=== PATIENT | male | born 1935 | race Caucasian/White ===

== ENCOUNTER 2016-09-28 10:24 | Outpatient (CLI) | payer MEDICARE | END 2016-09-28 10:25 | disposition home or self-care (01) | DX: Z00.00 Encounter for general adult medical examination without abnormal findings (principal); Z79.899 Other long term (current) drug therapy; I10 Essential (primary) hypertension; G47.33 Obstructive sleep apnea (adult) (pediatric); I25.10 Atherosclerotic heart disease of native coronary artery without angina pectoris; M48.00 Spinal stenosis, site unspecified; E11.9 Type 2 diabetes mellitus without complications; D75.1 Secondary polycythemia ==

== ENCOUNTER 2016-10-30 14:49 | Outpatient (CLI) | payer MEDICARE | END 2016-10-30 14:50 | disposition home or self-care (01) | DX: G47.33 Obstructive sleep apnea (adult) (pediatric) (principal) | CPT/HCPCS: 99214; G0463 ==

== ENCOUNTER 2016-12-11 16:54 | Outpatient (CLI) | payer MEDICARE ==
--- NOTE | 2016-12-12 12:34 | XRAY Report ---
LEFT HIP AND PELVIS: 12/11/2016 CLINICAL INDICATION: Left hip pain. FINDINGS: Frontal view of the hips and pelvis and frogleg lateral view of the left hip demonstrate m oderate left hip osteoarthritis. There is no evidence of acute fracture or dislocation. No radiopaq ue foreign body is seen in the soft tissues. IMPRESSION: MODERATE LEFT HIP OSTEOARTHRITIS. JOB #: [id number] EXT JOB #:[id number]
== END 2016-12-11 16:55 | disposition home or self-care (01) ==
LOC: DI 16:54
PROVIDERS: ATTEND Internal Medicine
DX: M16.12 Unilateral primary osteoarthritis, left hip (principal)

== ENCOUNTER 2016-12-28 19:22 | Outpatient (CLI) | payer MEDICARE | END 2016-12-28 19:23 | disposition home or self-care (01) | LOC: LAB 19:22 | PROVIDERS: ATTEND Internal Medicine | DX: M79.89 Other specified soft tissue disorders (principal) | CPT/HCPCS: 36415; 85379 ==

== ENCOUNTER 2017-01-04 11:37 | Outpatient (CLI) | payer MEDICARE ==
[2017-01-04] MEDS ORDERED: GADOBUTROL 10 MMOL/10 ML SYRINGE IVP ONE (13:57)
--- NOTE | 2017-01-04 16:46 | MRI Report ---
EXAM: MRI LUMBAR SPINE WITHOUT AND WITH CONTRAST EXAM DATE: 01/04/2017 02:12 p.m. CLINICAL HISTORY: Left side of lower back pain radiating into the left hip and groin and left leg. Pr evious surgery 2 years ago. COMPARISONS: Lumbar spine radiography from 07/18/2010. TECHNIQUE: Multiplanar, multisequence T1-weighted and fluid-sensitive sequences of the lumbar spine f rom T12 to S1 before and after administration of intravenous contrast. IV contrast: 11 mL Gadavist. O ther: None. FINDINGS: Spinal Cord: The conus terminates at mid L1. No signal abnormality in the visualized spinal cord. Alignment: Normal. No scoliosis or spondylolisthesis. Bone Marrow: Five [id number] lumbar vertebral bodies are assumed. Schmorl's nodes at the L1 and L2 inferior endplates and at the L3 superior endplate. Schmorl's node at the T11 inferior endplate. N o acute fractures or bone lesions. Disk Levels/Facets: L5-S1: Small disk bulge. Moderate left and mild to moderate right facet arthropathy. Minimal canal na rrowing. No foraminal stenoses. L4-L5: Small disk bulge. Small amount of enhancing tissue at the posterior aspect of the disk annulus . Previous laminotomy. Enhancing tissue at the laminotomy operative site. Moderate to severe facet ar thropathy. Small facet joint effusions. Mild canal stenosis. Mild to moderate foraminal stenoses. L3-L4: Small disk bulge/osteophyte complex. Moderate left and mild to moderate right facet arthropath y. Mild to moderate canal stenosis. Mild to moderate foraminal stenoses. L2-L3: Small right foraminal disk protrusion. Small left foraminal and extra- foraminal disk protrusi on. Moderate ligamentum flavum thickening. Mild facet arthropathy. Mild to moderate canal stenosis. M ild to moderate foraminal stenoses. L1-L2: Right-sided degenerative endplate changes. Severe right-sided and moderate to severe left-side d disk space narrowing. Small to moderate-sized disk bulge/osteophyte complex which is asymmetric tow ards the right. Mild facet arthropathy. Mild to moderate canal stenosis. Mild left and moderate right foraminal stenoses. T12-L1: Degenerative endplate changes. Moderate to severe disk space narrowing. Small posterior centr al to right paracentral disk extrusion/osteophyte complex. The disk extrusion/osteophyte complex exte nds superiorly to the lower T12 level. There is also a small to moderate-sized posterior left paracen tral disk extrusion which extends into the left upper L1 lateral recess (sagittal image 6 and axial i mage 31). There is moderate to severe focal stenosis at the left upper L1 lateral recess. There is mi ld canal stenosis at the lower T12 and T12-L1 levels. No cord or conus impingement. Mild to moderate foraminal stenoses. Spinal Canal: No enhancing masses within the spinal canal. No epidural abscess. Musculature: Mild to moderate fatty atrophy within the posterior paraspinal muscles at the L5-S1 and S1 levels. Other: Small cyst at the left kidney. Scar tissue within the posterior midline subcutaneous fat from the mid L3 level to the L4-L5 level. IMPRESSION: 1. Multilevel degenerative disk changes, osteophytosis, ligamentum flavum thickening, and facet arthr opathy. Some of the more significant levels are at T12-L1, L1-L2, L2-L3. 2. Small posterior central to right paracentral disk extrusion/osteophyte complex and small to modera te-sized posterior left paracentral disk extrusion at T12-L1. The left-sided disk extrusion causes mo derate to severe focal stenosis at the left upper L1 lateral recess. Mild canal stenosis. Mild to mod erate foraminal stenoses. 3. Small to moderate-sized asymmetric disk bulge/osteophyte complex towards the right at L1-L2. Mild to moderate canal stenosis. Moderate right and mild left foraminal stenoses. 4. Small right foraminal disk protrusion and small left foraminal and extra-foraminal disk protrusion at L2-L3. Mild to moderate canal and foraminal stenoses. Comment: The following findings are so common in adults without low back pain that while we report th eir presence, they must be interpreted with caution and in the context of the clinical situation. (Re sharon Salcido et al, Spine 2001) Prevalence of findings in patients without low back pain: Disk degeneration (any evidence): 92% Disk desiccation/T2 signal loss: 83% Disk height loss: 56% Disk bulge: 64% Disk protrusion: 32% Annular tear/high intensity zone: 38% [facility] Referring Provider Line: [phone] SITE ID: [id number]
== END 2017-01-04 11:38 | disposition home or self-care (01) ==
LOC: LAB 11:37
PROVIDERS: ATTEND Internal Medicine
DX: M51.35 Other intervertebral disc degeneration, thoracolumbar region (principal); M51.36 Other intervertebral disc degeneration, lumbar region; M51.37 Other intervertebral disc degeneration, lumbosacral region; M51.26 Other intervertebral disc displacement, lumbar region; M47.9 Spondylosis, unspecified; M25.78 Osteophyte, vertebrae
CPT/HCPCS: 36415; 72158; 82565; A9585

== ENCOUNTER 2017-03-16 09:57 | Outpatient (CLI) | payer MEDICARE ==
[2017-03-16 10:48] LABS: CHOL/HDL RATIO 7.1 (<5.0); CHOLESTEROL 205 mg/dL; HDL CHOLESTEROL 29 mg/dL; LDL/HDL RATIO 3.6 (<3.6); TRIGLYCERIDES 364 mg/dL; VLDL CHOLESTEROL 73 mg/dL
[2017-03-16 11:01] LABS: HEMOGLOBIN A1C 0.78 g/dL
== END 2017-03-16 09:58 | disposition home or self-care (01) ==
LOC: LAB 09:57
PROVIDERS: ATTEND Internal Medicine
DX: E78.5 Hyperlipidemia, unspecified (principal); E11.9 Type 2 diabetes mellitus without complications
CPT/HCPCS: 36415; 80061; 83036

== ENCOUNTER 2017-04-14 13:15 | Emergency (ER) | payer MEDICARE ==
[2017-04-14] MEDS ORDERED: SODIUM CHLORIDE FLUSH 0.9% 10 ML SYRINGE IVP ONE (13:45)
--- NOTE | 2017-04-14 14:01 | XRAY Preliminary Report ---
Exam: XR CHEST 2 VIEW PA/LAT IMPRESSION: No significant interval change. Moderately elevated right hemidiaphragm with clear lungs. Unchanged. [facility] SITE ID: [id number]
--- NOTE | 2017-04-14 14:04 | XRAY Report ---
EXAM: CHEST RADIOGRAPHY EXAM DATE: 04/14/2017 01:52 PM. CLINICAL HISTORY: Chest pain. COMPARISON: 06/08/2016. TECHNIQUE: 2 views. FINDINGS: Lungs/Pleura: There is moderate elevation of the right diaphragm which appears without significant in terval change. Mediastinum: The heart is normal in size. There are findings of previous median sternotomy. Pulmonary vasculature within normal limits. Other: None. IMPRESSION: No significant interval change. Moderately elevated right hemidiaphragm with clear lungs. Unchanged. [facility] Referring Provider Line: [phone] SITE ID: [id number]
--- NOTE | 2017-04-14 14:06 | ED Physician Documentation ---
PD HPI CHEST PAIN - Stated complaint Stated Complaint: CHEST PX - Chief complaint Chief Complaint: Cardiac - History obtained from History obtained from: Patient - History of Present Illness Timing - onset: Last night Timing - onset during: Rest Timing - duration: Hours (12) Timing - details: Gradual onset (had onset chest pressure last night and noted it continue into this morning.), Waxing and waning Quality: Pressure, Tightness Location: Substernal Radiation: Neck. No: Jaw Improved by: Other (had not eaten this morning, so not correlation there.). No : Rest Worsened by: No: Exertion, Inspiration, Movement, Palpation Associated symptoms: No: Shortness of air, Nausea, Vomiting, Feeling faint / dizzy, Palpitations, Cough Similar symptoms before: Diagnosis (has had CAD and stents in the past.) Recently seen: Not recently seen Review of Systems Constitutional: denies: Fever, Chills Nose: denies: Rhinorrhea / runny nose, Congestion Throat: denies: Sore throat Cardiac: denies: Palpitations, Pedal edema, Calf pain Respiratory: denies: Dyspnea, Cough, Wheezing GI: denies: Abdominal Pain, Nausea, Vomiting, Diarrhea Musculoskeletal: denies: Joint pain, Extremity swelling Neurologic: denies: Generalized weakness, Focal weakness, Numbness PD PAST MEDICAL HISTORY - Past Medical History Cardiovascular: Hypertension, High cholesterol, Angina, [place] Respiratory: Pneumonia, Sleep apnea, CPAP use Endocrine/Autoimmune: Type 2 diabetes GI: GERD, GI bleed, Cholelithiasis : None HEENT: None Psych: None Musculoskeletal: Other Derm: None - Past Surgical History Past Surgical History: Yes General: Cholecystectomy, Colonoscopy, EGD Ortho: Arthroscopic surgery Cardiovascular: CABG HEENT: Cataracts, Tonsil/Adenoidectomy - Present Medications Home Medications: Ambulatory Orders Medication Instructions Recorded Confirmed Amlodipine Besylate 10 mg PO DAILY 11/15/14 04/14/17 Aspirin [Aspir 81] 81 mg PO DAILY 11/15/14 04/14/17 Atenolol 50 mg PO DAILY 11/15/14 04/14/17 Hydrochlorothiazide 12.5 mg PO DAILY 11/15/14 04/14/17 Losartan [Cozaar] 100 mg PO DAILY 11/15/14 04/14/17 Lorazepam [Ativan] 1 mg PO DAILY PRN 12/10/14 04/14/17 Multivitamin [Multivitamins] 1 each PO DAILY 12/10/14 04/14/17 Omeprazole 20 mg PO ONCE PRN 12/10/14 04/14/17 Ubidecarenone [Co Q-10] 100 mg PO DAILY 12/10/14 04/14/17 - Allergies Allergies/Adverse Reactions: Allergies Allergy/AdvReac Type Severity Reaction Status Date / Time codeine AdvReac Severe Nausea Verified 04/14/17 13:23 hyoscyamine AdvReac Severe Rash Verified 04/14/17 13:23 - Social History Does the pt smoke?: No Smoking Status: Never smoker Does the pt drink ETOH?: No Does the pt have substance abuse?: No - Immunizations Immunizations are current?: Yes - POLST Patient has POLST: Yes PD ED PE NORMAL - Vitals Vital signs reviewed: Yes - General General: Alert and oriented X 3, No acute distress, Well developed/nourished - HEENT HEENT: Pharynx benign - Neck Neck: Supple, no meningeal sign, No adenopathy, No JVD, No bruit - Cardiac Cardiac: RRR, No murmur - Respiratory Respiratory: Clear bilaterally - Abdomen Abdomen: Normal bowel sounds, Soft, Non tender - Male Male : Deferred - Rectal Rectal: Deferred - Back Back: No CVA TTP - Derm Derm: Normal color, Warm and dry, No rash - Neuro Neuro: Alert and oriented X 3, No motor deficit, Normal speech Results - Vitals Vitals: Oxygen O2 Source Room air - Labs Labs: Laboratory Tests 04/14/17 04/14/17 04/14/17 15:30 15:30 15:30 WBC 9.5 RBC 4.68 L Hgb 14.4 Hct 41.9 L MCV 89.4 MCH 30.8 MCHC 34.4 RDW 13.8 Plt Count 228 MPV 9.0 Neut # 5.5 Lymph # 2.8 [place] # 0.9 Eos # 0.2 Baso # 0.1 Absolute Nucleated RBC 0.00 Nucleated RBC % 0.0 Sodium 140 Potassium 3.9 Chloride 103 Carbon Dioxide 26 Anion Gap 11.0 BUN 25 H Creatinine 0.8 Estimated GFR (MDRD) 93 Glucose 99 Calcium 9.5 Magnesium Total Bilirubin 0.7 AST 31 ALT 36 Alkaline Phosphatase 59 Troponin I < 0.04 B-Natriuretic Peptide Total Protein 7.2 Albumin 4.4 Globulin 2.8 Albumin/Globulin Ratio 1.6 Lipase 29 04/14/17 04/14/17 15:30 15:30 WBC RBC Hgb Hct MCV MCH MCHC RDW Plt Count MPV Neut # Lymph # [place] # Eos # Baso # Absolute Nucleated RBC Nucleated RBC % Sodium Potassium Chloride Carbon Dioxide Anion Gap BUN Creatinine Estimated GFR (MDRD) Glucose Calcium Magnesium 2.2 Total Bilirubin AST ALT Alkaline Phosphatase Troponin I B-Natriuretic Peptide 60 Total Protein Albumin Globulin Albumin/Globulin Ratio Lipase - Rads (name of study) chest Radiology: Prelim report reviewed, EMP read contemporaneously PD MEDICAL DECISION MAKING - ED course Complexity details: reviewed results (normal ECG and troponin), re-evaluated patient (improved with GI cocktail. ), considered differential, d/w patient Departure - Departure Disposition: Home, Self Care Clinical Impression: Chest pressure, Esophagitis Clinical Impression: (Ruled Out): Myocardial infarction Condition: Stable Record reviewed to determine appropriate education?: Yes Instructions: ED Chest Pain Atypical Unkn Cause, ED GERD Follow-Up: Grisel Dalal MD [Primary Care Provider] - Comments: Continue usual medications. There is no signs of heart attack or heart failure or lung process at this time. Presume some heartburn and irritation of the esophagus subsequently. Use antacids such as Maalox or Mylanta 3 4 times a day over the next few days. Recheck if persistent symptoms over the next several days. Use your omeprazole daily for the next 2-3 weeks. Discharge Date/Time: 04/14/17 16:18
[2017-04-14] MEDS ORDERED: MAG HYDROX/AL HYDROX/SIMETH 30 ML UDC PO STA (14:20)
[2017-04-14] MEDS ORDERED: ACETAMINOPHEN 325 MG TABLET PO STA (14:20)
[2017-04-14] MEDS ORDERED: ACETAMINOPHEN 325 MG TABLET PO ONE (14:42)
[2017-04-14] MEDS ORDERED: MAG HYDROX/AL HYDROX/SIMETH 30 ML UDC ONE (14:42)
[2017-04-14 15:37] LABS: BASOPHILS # (AUTO) 0.1 10^3/uL (0.0-0.1); EOSINOPHILS # (AUTO) 0.2 10^3/uL (0.0-0.7); EOSINOPHILS % (AUTO) 2.1 %; HCT - HEMATOCRIT 41.9 % (42.0-52.0); HGB - HEMOGLOBIN 14.4 g/dL (14.0-18.0); LYMPHOCYTES # (AUTO) 2.8 10^3/uL (1.5-3.5); LYMPHOCYTES % (AUTO) 29.5 %; MEAN CORPUSCULAR HEMOGLOBIN 30.8 pg (27.0-31.0); MEAN CORPUSCULAR HGB CONC 34.4 g/dL (32.0-36.0); MEAN CORPUSCULAR VOLUME 89.4 fL (80.0-94.0); MONOCYTES # (AUTO) 0.9 10^3/uL (0.0-1.0); MONOCYTES % (AUTO) 9.8 %; NEUTROPHILS # (AUTO) 5.5 10^3/uL (1.5-6.6); NEUTROPHILS % (AUTO) 57.6 %; RED BLOOD COUNT 4.68 10^6/uL (4.70-6.10); RED CELL DISTRIBUTION WIDTH 13.8 % (12.0-15.0); UNCORRECTED WHITE BLOOD COUNT 9.5 x10^3/uL; WHITE BLOOD COUNT 9.5 x10^3/uL (4.8-10.8)
[2017-04-14 15:52] LABS: ALBUMIN/GLOBULIN RATIO 1.6 (1.0-2.2); BILIRUBIN,TOTAL 0.7 mg/dL (0.2-1.0); CALCIUM 9.5 mg/dL (8.5-10.3); CREATININE 0.8 mg/dL (0.6-1.2); POTASSIUM 3.9 mmol/L (3.5-5.0); TOTAL PROTEIN 7.2 g/dL (6.7-8.2)
[2017-04-14 16:07] VITALS: BP 150/51
== END 2017-04-14 16:18 | disposition home or self-care (01) ==
LOC: ED 13:15
DX: R07.89 Other chest pain (principal); K20.9 Esophagitis, unspecified; E11.9 Type 2 diabetes mellitus without complications; I10 Essential (primary) hypertension; E78.00 Pure hypercholesterolemia, unspecified; I25.2 Old myocardial infarction; I25.10 Atherosclerotic heart disease of native coronary artery without angina pectoris; Z95.5 Presence of coronary angioplasty implant and graft; Z79.82 Long term (current) use of aspirin
CPT/HCPCS: 36415; 71020; 80053; 83690; 83735; 83880; 84484; 85025; 93005; 99284; A9270; 82550; 82553

== ENCOUNTER 2017-04-19 09:59 | Outpatient (CLI) | payer MEDICARE | END 2017-04-19 10:00 | disposition home or self-care (01) | LOC: NS 09:59 | PROVIDERS: ATTEND Internal Medicine | DX: Z71.3 Dietary counseling and surveillance (principal); E11.9 Type 2 diabetes mellitus without complications; E66.3 Overweight; Z68.36 Body mass index [BMI] 36.0-36.9, adult | CPT/HCPCS: 97802 ==

== ENCOUNTER 2017-05-14 15:44 | Outpatient (CLI) | payer MEDICARE ==
[2017-05-14 16:27] LABS: BASOPHILS # (AUTO) 0.1 10^3/uL (0.0-0.1); EOSINOPHILS # (AUTO) 0.2 10^3/uL (0.0-0.7); EOSINOPHILS % (AUTO) 1.5 %; HCT - HEMATOCRIT 44.8 % (42.0-52.0); HGB - HEMOGLOBIN 15.2 g/dL (14.0-18.0); LYMPHOCYTES # (AUTO) 2.7 10^3/uL (1.5-3.5); LYMPHOCYTES % (AUTO) 25.7 %; MEAN CORPUSCULAR HEMOGLOBIN 31.2 pg (27.0-31.0); MEAN CORPUSCULAR HGB CONC 33.9 g/dL (32.0-36.0); MEAN PLATELET VOLUME 9.3 fL (7.4-11.4); MONOCYTES % (AUTO) 9.3 %; NEUTROPHILS # (AUTO) 6.5 10^3/uL (1.5-6.6); NEUTROPHILS % (AUTO) 62.5 %; RED BLOOD COUNT 4.87 10^6/uL (4.70-6.10); UNCORRECTED WHITE BLOOD COUNT 10.4 x10^3/uL; WHITE BLOOD COUNT 10.4 x10^3/uL (4.8-10.8)
[2017-05-14 16:31] LABS: BILIRUBIN,URINE NEGATIVE (NEGATIVE); UA CHARGE (STRIP ONLY) YES; UR CULTURE IF IND NOT INDICATED
[2017-05-14 16:39] LABS: CALCIUM 9.2 mg/dL (8.5-10.3); POTASSIUM 4.1 mmol/L (3.5-5.0)
[2017-05-14 16:57] LABS: HEMOGLOBIN A1C 0.72 g/dL
== END 2017-05-14 15:45 | disposition home or self-care (01) ==
LOC: LAB 15:44
PROVIDERS: ATTEND Orthopaedic Surgery
DX: Z01.818 Encounter for other preprocedural examination (principal); R73.09 Other abnormal glucose
CPT/HCPCS: 36415; 80048; 81001; 81003; 83036; 85025; 87086

== ENCOUNTER 2017-06-07 10:59 | Outpatient (CLI) | payer MEDICARE | END 2017-06-07 11:00 | disposition home or self-care (01) | LOC: NS 10:59 | PROVIDERS: ATTEND Internal Medicine | DX: Z71.3 Dietary counseling and surveillance (principal); E11.9 Type 2 diabetes mellitus without complications; E66.3 Overweight; Z68.35 Body mass index [BMI] 35.0-35.9, adult | CPT/HCPCS: 97803 ==

== ENCOUNTER 2017-07-03 13:39 | Outpatient (CLI) | payer MEDICARE | END 2017-07-03 13:40 | disposition home or self-care (01) | LOC: SC 13:39 | PROVIDERS: ATTEND Nurse Practitioner Family | DX: G47.33 Obstructive sleep apnea (adult) (pediatric) (principal) | CPT/HCPCS: 99214; G0463; 99212 ==

== ENCOUNTER 2017-09-24 14:03 | Outpatient (CLI) | payer MEDICARE | END 2017-09-24 14:04 | disposition home or self-care (01) | LOC: SC 14:03 | PROVIDERS: ATTEND Nurse Practitioner Family | DX: G47.33 Obstructive sleep apnea (adult) (pediatric) (principal) | CPT/HCPCS: 99214; G0463; 99212 ==

== ENCOUNTER 2017-10-05 19:16 | Emergency (ER) | payer MEDICARE ==
--- NOTE | 2017-10-05 20:36 | ED Physician Documentation ---
PD HPI LOWER EXT INJURY - Stated complaint Stated Complaint: LT LEG PX/PO 9 WKS - Chief complaint Chief Complaint: Ext Problem - History obtained from History obtained from: Patient, Family - History of Present Illness PD HPI LOW EXT INJURY LOCATION: Both, Lower leg Where injury occurred: Home Timing - details: Gradual onset, Still present Recently seen: Surgery - Additional information Additional information: Patient is an 82 year old male who is presenting to the emergency department for bilateral lower leg swelling, worse on the left. patient had a hip replaced about a month ago (on the left). Patient had been on two baby aspirin a day but he stopped two weeks ago. Patient states that he has had worsening lower extremity edema. Patient reports that he has had full cardiac work up prior to surgery and never has any issues with heart failure. Review of Systems Eyes: reports: Reviewed and negative Ears: reports: Reviewed and negative Nose: reports: Reviewed and negative Throat: reports: Reviewed and negative Cardiac: reports: Pedal edema. denies: Chest pain / pressure, Palpitations Respiratory: denies: Dyspnea, Cough, Wheezing GI: denies: Abdominal Pain, Nausea, Vomiting Skin: denies: Rash, Lesions Musculoskeletal: reports: Extremity swelling Neurologic: denies: Generalized weakness, Focal weakness Immunocompromised: denies: Immunocompromised PD PAST MEDICAL HISTORY - Past Medical History Past Medical History: Yes Cardiovascular: Hypertension, High cholesterol, Angina, [place] Respiratory: Pneumonia, Sleep apnea, CPAP use Endocrine/Autoimmune: Type 2 diabetes GI: GERD, GI bleed, Cholelithiasis : None HEENT: None Psych: None Musculoskeletal: Other Derm: None - Past Surgical History Past Surgical History: Yes General: Cholecystectomy, Colonoscopy, EGD Ortho: Hip replacement, Arthroscopic surgery Cardiovascular: CABG HEENT: Cataracts, Tonsil/Adenoidectomy - Present Medications Home Medications: Ambulatory Orders Medication Instructions Recorded Confirmed Amlodipine Besylate 10 mg PO DAILY 11/15/14 04/14/17 Aspirin [Aspir 81] 81 mg PO DAILY 11/15/14 04/14/17 Atenolol 50 mg PO DAILY 11/15/14 04/14/17 Losartan [Cozaar] 100 mg PO DAILY 11/15/14 04/14/17 hydroCHLOROthiazide 12.5 mg PO DAILY 11/15/14 04/14/17 [Hydrochlorothiazide] Lorazepam [Ativan] 1 mg PO DAILY PRN 12/10/14 04/14/17 Multivitamin [Multivitamins] 1 each PO DAILY 12/10/14 04/14/17 Omeprazole 20 mg PO ONCE PRN 12/10/14 04/14/17 Ubidecarenone [Co Q-10] 100 mg PO DAILY 12/10/14 04/14/17 - Allergies Allergies/Adverse Reactions: Allergies Allergy/AdvReac Type Severity Reaction Status Date / Time codeine AdvReac Severe Nausea Verified 10/05/17 19:33 hyoscyamine AdvReac Severe Rash Verified 10/05/17 19:33 - Social History Does the pt smoke?: No Smoking Status: Never smoker Does the pt drink ETOH?: No Does the pt have substance abuse?: No - Immunizations Immunizations are current?: Yes - POLST Patient has POLST: Yes PD ED PE NORMAL - Vitals Vital signs reviewed: Yes - General General: Alert and oriented X 3, No acute distress - HEENT HEENT: Atraumatic, PERRL - Neck Neck: No JVD - Cardiac Cardiac: RRR, No murmur - Respiratory Respiratory: No respiratory distress, Clear bilaterally - Abdomen Abdomen: Soft - Derm Derm: Normal color, Warm and dry - Neuro Neuro: Alert and oriented X 3, No motor deficit Eye Opening: Spontaneous PD ED PE EXPANDED - Extremities Extremities: Pedal edema bilateral (plus 3 lower extremity edema bilaterally), Left calf TTP/cord, Pedal Pulses Present Results - Vitals Vitals: Vital Signs - 24 hr 10/05/17 10/05/17 19:25 22:39 Temperature 37.0 C Heart Rate 60 51 L Respiratory 18 18 Rate Blood Pressure 151/116 H 170/76 H O2 Saturation 98 97 Oxygen O2 Source Room air - Rads (name of study) duplex studies bilateral Radiology: Final report received (no dvt appreciated) PD MEDICAL DECISION MAKING - ED course Complexity details: reviewed old records, reviewed results, re-evaluated patient , considered differential, d/w patient, d/w family ED course: patient was seen and examined at bedside. Imaging was ordered. When patient returned from imaging the results were reviewed. there was no acute DVT appreciated. A discussion was had with the patient and family concerning other causes of lower extremity edema. labs and imaging were offered as chf was explained as a possibility. 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 The were informed that an echocardiogram would be the appropriate test. they stated they understood. they were given detailed discharge and follow up instructions and were stable for outpatient follow up. Departure - Departure Disposition: 01 Home, Self Care Clinical Impression: Lower leg edema Condition: Good Instructions: ED Edema Legs Bilateral Follow-Up: Grisel Dalal MD [Primary Care Provider] - Within 3 Days Comments: Your ultrasound today was within normal limits. There is no DVT. You can increase your hctz dose but you will need to monitor your blood pressures. You should follow up with your doctor/food service employee for an echo cardiogram. You should return to the emergency department at any time for chest pain, shortness of breath, new worsening or uncontrollable symptoms. Discharge Date/Time: 10/05/17 22:40
--- NOTE | 2017-10-05 22:01 | Ultrasound Report ---
EXAM: BILATERAL LOWER EXTREMITY VENOUS ULTRASOUND EXAM DATE: 10/05/2017 09:50 PM. CLINICAL HISTORY: Bilateral leg swelling post surgery. COMPARISON: None. TECHNIQUE: Real-time sonographic vascular imaging was performed by the skip load driver through the lower extremities utilizing both color-flow and Doppler spectral analysis. Multiple quality audit representative static i mages were saved for review. FINDINGS: Right: Common Femoral Vein (CFV): Normal. CFV-GSV Junction: Normal. Profunda Femoral Vein (PFV): Normal. Femoral Vein (FV) Prox: Normal. Femoral Vein (FV) Mid: Normal. Femoral Vein (FV) Dist: Normal. Popliteal Vein: Normal. Posterior Tibial Veins: Normal. Peroneal Veins: Not well seen. Left: Common Femoral Vein (CFV): Normal. CFV-GSV Junction: Normal. Profunda Femoral Vein (PFV): Normal. Femoral Vein (FV) Prox: Normal. Femoral Vein (FV) Mid: Normal. Femoral Vein (FV) Dist: Normal. Popliteal Vein: Normal. Posterior Tibial Veins: Normal. Peroneal Veins: Not well seen. Other: There is bilateral Edema. IMPRESSION: No evidence for deep venous thrombosis bilaterally. [facility] Referring Provider Line: [phone] SITE ID: [id number]
[2017-10-05 22:40] VITALS: BP 170/76
== END 2017-10-05 22:40 | disposition home or self-care (01) ==
LOC: ED 19:16
DX: R60.0 Localized edema (principal); I25.2 Old myocardial infarction; I10 Essential (primary) hypertension; E78.00 Pure hypercholesterolemia, unspecified; E11.9 Type 2 diabetes mellitus without complications; Z95.1 Presence of aortocoronary bypass graft; Z96.641 Presence of right artificial hip joint; Z79.82 Long term (current) use of aspirin
CPT/HCPCS: 93970; 99283

== ENCOUNTER 2017-10-14 12:59 | Outpatient (CLI) | payer MEDICARE | END 2017-10-14 13:00 | disposition home or self-care (01) | LOC: DI 12:59 | PROVIDERS: ATTEND Internal Medicine | DX: R60.9 Edema, unspecified (principal); R06.00 Dyspnea, unspecified; I51.7 Cardiomegaly; I07.1 Rheumatic tricuspid insufficiency | CPT/HCPCS: 93306 ==

== ENCOUNTER 2017-10-20 09:45 | Outpatient (CLI) | payer MEDICARE ==
[2017-10-20 10:15] LABS: BASOPHILS # (AUTO) 0.1 10^3/uL (0.0-0.1); BASOPHILS % (AUTO) 0.9 %; EOSINOPHILS # (AUTO) 0.3 10^3/uL (0.0-0.7); EOSINOPHILS % (AUTO) 3.3 %; HGB - HEMOGLOBIN 13.2 g/dL (14.0-18.0); LYMPHOCYTES # (AUTO) 2.4 10^3/uL (1.5-3.5); LYMPHOCYTES % (AUTO) 31.6 %; MEAN CORPUSCULAR HEMOGLOBIN 29.6 pg (27.0-31.0); MEAN CORPUSCULAR HGB CONC 33.9 g/dL (32.0-36.0); MEAN CORPUSCULAR VOLUME 87.4 fL (80.0-94.0); MEAN PLATELET VOLUME 9.8 fL (7.4-11.4); MONOCYTES # (AUTO) 0.7 10^3/uL (0.0-1.0); MONOCYTES % (AUTO) 9.7 %; NEUTROPHILS # (AUTO) 4.2 10^3/uL (1.5-6.6); NEUTROPHILS % (AUTO) 54.5 %; PLT - PLATELET COUNT 201 10^3/uL (130-450); RED BLOOD COUNT 4.46 10^6/uL (4.70-6.10); RED CELL DISTRIBUTION WIDTH 13.6 % (12.0-15.0); WHITE BLOOD COUNT 7.7 x10^3/uL (4.8-10.8)
[2017-10-20 10:16] LABS: BILIRUBIN,URINE NEGATIVE (NEGATIVE); GLUCOSE, URINE (UA) NEGATIVE (NEGATIVE); KETONES,URINE (UA) NEGATIVE (NEGATIVE); LEUKOCYTE ESTERASE, URINE NEGATIVE (NEGATIVE); NITRITE,URINE NEGATIVE (NEGATIVE); OCCULT BLOOD,URINE NEGATIVE (NEGATIVE); PROTEIN,URINE NEGATIVE (NEGATIVE); UROBILINOGEN,URINE 0.2 (NORMAL) E.U./dL (NORMAL)
[2017-10-20 10:23] LABS: CLARITY,URINE CLEAR (CLEAR)
[2017-10-20 10:31] LABS: ALBUMIN 3.8 g/dL (3.2-5.5); ALBUMIN/GLOBULIN RATIO 1.5 (1.0-2.2); ALKALINE PHOSPHATASE 68 IU/L (42-121); ALT ALANINE AMINOTRANSFERASE 21 IU/L (10-60); AST ASPARTATE AMINOTRANSFERASE 24 IU/L (10-42); BILIRUBIN,TOTAL 0.5 mg/dL (0.2-1.0); BUN - BLOOD UREA NITROGEN 18 mg/dL (6-20); CALCIUM 8.6 mg/dL (8.5-10.3); CARBON DIOXIDE - CO2 26 mmol/L (21-32); CHLORIDE 104 mmol/L (101-111); CHOL/HDL RATIO 3.9 (<5.0); CHOLESTEROL 114 mg/dL; CREATININE 0.9 mg/dL (0.6-1.2); GFR - MDRD 81 (>89); GLUCOSE 161 mg/dL (70-100); HDL CHOLESTEROL 29 mg/dL; LDL CHOLESTEROL,CALCULATED 57 mg/dL; SODIUM 137 mmol/L (135-145); TOTAL PROTEIN 6.4 g/dL (6.7-8.2); VLDL CHOLESTEROL 28 mg/dL
[2017-10-20 10:40] LABS: CREATININE,URINE 60.4 mg/dL
[2017-10-20 10:59] LABS: HB2 TOTAL 14.3 g/dL; HEMOGLOBIN A1C 0.71 g/dL; HEMOGLOBIN A1C % 6.7 % (4.6-6.2)
[2017-10-20 11:24] LABS: TOTAL PROTEIN,URINE TIMED < 6 mg/dL
== END 2017-10-20 09:46 | disposition home or self-care (01) ==
LOC: LAB 09:45
PROVIDERS: ATTEND Internal Medicine
DX: Z12.5 Encounter for screening for malignant neoplasm of prostate (principal); R07.9 Chest pain, unspecified; R60.9 Edema, unspecified; I10 Essential (primary) hypertension; G47.33 Obstructive sleep apnea (adult) (pediatric); I25.10 Atherosclerotic heart disease of native coronary artery without angina pectoris; K58.9 Irritable bowel syndrome, unspecified; M48.00 Spinal stenosis, site unspecified; E11.9 Type 2 diabetes mellitus without complications; E29.1 Testicular hypofunction; D75.1 Secondary polycythemia; Z79.899 Other long term (current) drug therapy
CPT/HCPCS: 80053; 80061; 81003; 82570; 83036; 84156; 84443; 85025; G0103; 81001; 83721; 84153; 87086

== ENCOUNTER 2018-03-13 19:35 | Emergency (ER) | payer MEDICARE ==
[2018-03-13] MEDS ORDERED: amLODIPine 5 MG TABLET PO STA (20:05)
--- NOTE | 2018-03-13 20:11 | ED Physician Documentation ---
History of Present Illness - Stated complaint Stated Complaint: HIGH BP - Chief complaint Chief Complaint: General - History obtained from History obtained from: Patient - History of Present Illness Timing: Other (He has a history of hypertension and coronary disease. He was taking amlodipine but stopped due to edema. Later the edema was found to be due to lymphedema after hip surgery. Anyway he went in for spinal injection today and they refused to do it because of high blood pressures. He feels fine, there is no shortness of breath or chest pain. He is taking his other blood pressure medicines.) Review of Systems Constitutional: denies: Fever, Chills Nose: denies: Rhinorrhea / runny nose Throat: denies: Sore throat Cardiac: denies: Chest pain / pressure, Palpitations Respiratory: denies: Dyspnea, Cough PD PAST MEDICAL HISTORY - Past Medical History Cardiovascular: Hypertension, High cholesterol, Angina, [place] Respiratory: Pneumonia, Sleep apnea, CPAP use Endocrine/Autoimmune: Type 2 diabetes GI: GERD, GI bleed, Cholelithiasis : None HEENT: None Psych: None Musculoskeletal: Other Derm: None - Past Surgical History Past Surgical History: Yes General: Cholecystectomy, Colonoscopy, EGD Ortho: Hip replacement, Arthroscopic surgery Cardiovascular: CABG HEENT: Cataracts, Tonsil/Adenoidectomy - Present Medications Home Medications: Ambulatory Orders Medication Instructions Recorded Confirmed Amlodipine Besylate 10 mg PO DAILY 11/15/14 04/14/17 Aspirin [Aspir 81] 81 mg PO DAILY 11/15/14 04/14/17 Atenolol 50 mg PO DAILY 11/15/14 04/14/17 Losartan [Cozaar] 100 mg PO DAILY 11/15/14 04/14/17 hydroCHLOROthiazide 12.5 mg PO DAILY 11/15/14 04/14/17 [Hydrochlorothiazide] Lorazepam [Ativan] 1 mg PO DAILY PRN 12/10/14 04/14/17 Multivitamin [Multivitamins] 1 each PO DAILY 12/10/14 04/14/17 Omeprazole 20 mg PO ONCE PRN 12/10/14 04/14/17 Ubidecarenone [Co Q-10] 100 mg PO DAILY 12/10/14 04/14/17 - Allergies Allergies/Adverse Reactions: Allergies Allergy/AdvReac Type Severity Reaction Status Date / Time codeine AdvReac Severe Nausea Verified 10/05/17 19:33 hyoscyamine AdvReac Severe Rash Verified 10/05/17 19:33 - Social History Does the pt smoke?: No Smoking Status: Never smoker Does the pt drink ETOH?: No Does the pt have substance abuse?: No - Immunizations Immunizations are current?: Yes - POLST Patient has POLST: Yes PD ED PE NORMAL - Vitals Vital signs reviewed: Yes - General General: Alert and oriented X 3, No acute distress - Neck Neck: Supple, no meningeal sign, No bony TTP - Cardiac Cardiac: RRR, No murmur - Respiratory Respiratory: No respiratory distress, Clear bilaterally - Abdomen Abdomen: Non tender - Extremities Extremities: No deformity, No tenderness to palpate, Normal ROM s pain - Neuro Neuro: Alert and oriented X 3, Normal speech - Psych Psych: Normal mood, Normal affect Results - Vitals Vitals: Vital Signs - 24 hr 03/13/18 03/13/18 03/13/18 19:35 19:59 20:46 Temperature 36.0 C L Heart Rate 50 L 53 L 49 L Respiratory 18 24 14 Rate Blood Pressure 207/82 H 207/71 H 194/59 H O2 Saturation 96 97 99 Oxygen O2 Source Room air - EKG (time done) 2015 Rate: Rate (enter#) (48) Rhythm: Sinus bradycardia [place]: Normal Intervals: Normal [place] QRS: Normal Ischemia: Normal ST segments - Labs Labs: Laboratory Tests 03/13/18 03/13/18 20:06 20:26 Sodium 139 Potassium 3.9 Chloride 106 Carbon Dioxide 23 Anion Gap 10.0 BUN 25 H Creatinine 1.1 Estimated GFR (MDRD) 64 L Glucose 124 H Calcium 8.9 Troponin I < 0.04 PD MEDICAL DECISION MAKING - ED course ED course: 83-year-old gentleman with history of hypertension presents with uncontrolled blood pressures after stopping amlodipine, the trigger for referral to the emergency department today was that he was asymptomatic but went for procedure which had to be canceled for same. He was given his amlodipine. Labs were checked and unremarkable. There is no evidence of endorgan damage. He was advised to restart the amlodipine and follow-up with his radiology director in a week. - Sepsis Event Vital Signs: Vital Signs - 24 hr 03/13/18 03/13/18 03/13/18 19:35 19:59 20:46 Temperature 36.0 C L Heart Rate 50 L 53 L 49 L Respiratory 18 24 14 Rate Blood Pressure 207/82 H 207/71 H 194/59 H O2 Saturation 96 97 99 Oxygen O2 Source Room air Departure - Departure Disposition: 01 Home, Self Care Clinical Impression: Uncontrolled hypertension Condition: Good Record reviewed to determine appropriate education?: Yes Instructions: ED HTN Established Comments: Take your amlodipine at a dose of 10 mg a day. Check her blood pressure daily and follow up with Dr. Plasencia in a week.
[2018-03-13 20:51] LABS: CALCIUM 8.9 mg/dL (8.5-10.3); CREATININE 1.1 mg/dL (0.6-1.2)
[2018-03-13 21:08] VITALS: BP 201/56
== END 2018-03-13 21:08 | disposition home or self-care (01) ==
LOC: ED 19:35
DX: I10 Essential (primary) hypertension (principal); E11.9 Type 2 diabetes mellitus without complications; I25.2 Old myocardial infarction; Z95.1 Presence of aortocoronary bypass graft
CPT/HCPCS: 36415; 80048; 84484; 93005; 99283; 99284; A9270

== ENCOUNTER 2018-04-03 10:52 | Outpatient (CLI) | payer MEDICARE ==
[2018-04-03] MEDS ORDERED: REGADENOSON 0.4 MG/5 ML SYRINGE IVP ONE (12:32)
--- NOTE | 2018-04-03 14:59 | CARDIAC PROCEDURE NOTE ---
DATE OF SERVICE: 04/03/2018 Physician: Shannan Marshall MD INDICATION: Silent CAD. After signing informed consent, the patient underwent a Lexiscan stress test with nuclear imaging. BASELINE ELECTROCARDIOGRAM: Sinus bradycardia, rate 52, poor R-wave progression, inferolateral T-wav e flattening. Resting heart rate 52, peak heart rate 66. Resting blood pressure 178/62, blood pressure on Lexiscan 162/60, recovery blood pressure 150/70. PEAK ELECTROCARDIOGRAM: No new ST or T-wave changes. The patient experienced a mild headache and mild shortness of breath, which resolved spontaneously. He had no chest pain. IMPRESSION 1. Indeterminate electrocardiogram for ischemia due to baseline electrocardiogram abnormality and ph armacologic stress test protocol. 2. Nuclear images reported separately. cc: Rey Plasencia M.D. TD: 04/03/2018 14:28
[2018-04-03] MEDS: REGADENOSON 0.4 MG/5 ML SYRINGE IVP ONE ×2 (15:51→15:52)
--- NOTE | 2018-04-04 09:23 | Nuclear Medicine Report ---
Reason: SILENT CAD Procedure Date: 04/03/2018 Accession Number: [id number] / [id number] Procedure: NM - Myocardial Perfusion STR/RST CPT Code: FULL RESULT: EXAM: SINGLE-ISOTOPE EXERCISE STRESS TEST. SINGLE-ISOTOPE AND ONE-DAY REST/STRESS MYOCARDIAL PERFUSION SCANS WITH TOMOGRAPHIC IMAGING, QUANTITATIVE ANALYSIS, WALL MOTION ANALYSIS AND CALCULATION OF EJECTION FRACTION. EXAM DATE: 04/03/2018 02:35 PM. CLINICAL HISTORY: SILENT CAD. COMPARISON: None available. TECHNIQUE: A rest myocardial perfusion scan was done with tomography after the intravenous administration of 8.1 mCi Tc-99m sestamibi. After an appropriate delay, a treadmill exercise stress was performed according to department protocol. The patient exercised for 5 minutes and 2 seconds. The maximum heart rate was 71 bpm, which was 51% of the maximum predicted heart rate of 139 bpm. At approximately peak heart rate, 42.3 mCi of Tc-99m sestamibi was injected for stress myocardial perfusion scan. Motion correction was applied when appropriate. Gated tomographic images were obtained for wall motion analysis and computation of left ventricular ejection fraction. EKG findings reported separately. FINDINGS: There is a small fixed defect in the apex and distal anterior wall. No other convincing fixed or reversible perfusion defects. Computer analysis: Summed stress score 4 Summed rest score 4 Summed difference score 0 Wall motion analysis demonstrates apical hypokinesis The left ventricular end-diastolic volume is 64 cc. The left ventricular end-systolic volume is 22 cc. The left ventricular ejection fraction is calculated to be 65%. IMPRESSION: 1. The patient failed to achieve the target heart rate for adequate stress. 2. There is a small fixed defect in the apex and distal anterior wall. No convincing reversible perfusion defects. 3. Normal left ventricular ejection fraction of 65%. 4. Normal segmental and global wall motion. 5. Normal left ventricular cavity size, no change with stress. 6. Based on computer analysis, mildly abnormal study with no ischemia. RADIA
== END 2018-04-03 10:53 | disposition home or self-care (01) ==
LOC: DI 10:52
PROVIDERS: ATTEND Internal Medicine Cardiovascular Disease
DX: I25.10 Atherosclerotic heart disease of native coronary artery without angina pectoris (principal)
CPT/HCPCS: 78452; 93017; A9500; J2785

== ENCOUNTER 2018-04-11 11:43 | Outpatient (CLI) | payer MEDICARE ==
[2018-04-11 12:43] LABS: CALCIUM 8.8 mg/dL (8.5-10.3); CREATININE 0.8 mg/dL (0.6-1.2)
[2018-04-11 13:28] LABS: HB2 TOTAL 15.2 g/dL; HEMOGLOBIN A1C 0.76 g/dL; HEMOGLOBIN A1C % 6.7 % (4.6-6.2)
== END 2018-04-11 11:44 | disposition home or self-care (01) ==
LOC: LAB 11:43
PROVIDERS: ATTEND Internal Medicine
DX: Z79.899 Other long term (current) drug therapy (principal); E11.9 Type 2 diabetes mellitus without complications
CPT/HCPCS: 36415; 80048; 83036

== ENCOUNTER 2018-08-22 15:59 | Outpatient (CLI) | payer MEDICARE ==
[2018-08-22 16:27] LABS: BASOPHILS # (AUTO) 0.1 10^3/uL (0.0-0.1); BASOPHILS % (AUTO) 0.9 %; EOSINOPHILS # (AUTO) 0.2 10^3/uL (0.0-0.7); HGB - HEMOGLOBIN 13.9 g/dL (14.0-18.0); LYMPHOCYTES # (AUTO) 2.4 10^3/uL (1.5-3.5); LYMPHOCYTES % (AUTO) 29.9 %; MEAN CORPUSCULAR HEMOGLOBIN 31.2 pg (27.0-31.0); MEAN CORPUSCULAR HGB CONC 33.9 g/dL (32.0-36.0); MEAN PLATELET VOLUME 8.9 fL (7.4-11.4); MONOCYTES # (AUTO) 0.7 10^3/uL (0.0-1.0); MONOCYTES % (AUTO) 9.3 %; NEUTROPHILS # (AUTO) 4.6 10^3/uL (1.5-6.6); NEUTROPHILS % (AUTO) 56.9 %; PLT - PLATELET COUNT 219 10^3/uL (130-450); RED BLOOD COUNT 4.47 10^6/uL (4.70-6.10); RED CELL DISTRIBUTION WIDTH 12.8 % (12.0-15.0)
[2018-08-22 16:42] LABS: BUN - BLOOD UREA NITROGEN 20 mg/dL (6-20); CALCIUM 9.4 mg/dL (8.5-10.3); CARBON DIOXIDE - CO2 30 mmol/L (21-32); CHLORIDE 103 mmol/L (101-111); CHOL/HDL RATIO 3.5 (<5.0); CHOLESTEROL 125 mg/dL; GFR - MDRD 72 (>89); GLUCOSE 140 mg/dL (70-100); HDL CHOLESTEROL 36 mg/dL; LDL CHOLESTEROL,CALCULATED 46 mg/dL; LDL/HDL RATIO 1.3 (<3.6); SODIUM 141 mmol/L (135-145); VLDL CHOLESTEROL 43 mg/dL
== END 2018-08-22 16:00 | disposition home or self-care (01) ==
LOC: LAB 15:59
PROVIDERS: ATTEND Internal Medicine Cardiovascular Disease
DX: I10 Essential (primary) hypertension (principal); E78.5 Hyperlipidemia, unspecified
CPT/HCPCS: 36415; 80048; 80061; 82088; 83721; 84244; 85025

== ENCOUNTER 2018-09-09 13:43 | Outpatient (CLI) | payer MEDICARE | END 2018-09-09 13:44 | disposition home or self-care (01) | LOC: SC 13:43 | PROVIDERS: ATTEND Nurse Practitioner Family | DX: G47.33 Obstructive sleep apnea (adult) (pediatric) (principal) | CPT/HCPCS: 99215; G0463; 99212 ==

== ENCOUNTER 2018-09-11 12:44 | Outpatient (CLI) | payer MEDICARE ==
[2018-09-11 13:05] LABS: CREATININE 1.1 mg/dL (0.6-1.2)
== END 2018-09-11 12:45 | disposition home or self-care (01) ==
LOC: LAB 12:44
PROVIDERS: ATTEND Internal Medicine Cardiovascular Disease
DX: I10 Essential (primary) hypertension (principal)
CPT/HCPCS: 36415; 80048

== ENCOUNTER 2018-10-31 10:48 | Outpatient (CLI) | payer MEDICARE ==
[2018-10-31 11:14] LABS: BASOPHILS # (AUTO) 0.2 10^3/uL (0.0-0.1); BASOPHILS % (AUTO) 2.3 %; EOSINOPHILS # (AUTO) 0.2 10^3/uL (0.0-0.7); EOSINOPHILS % (AUTO) 2.7 %; HGB - HEMOGLOBIN 14.8 g/dL (14.0-18.0); LYMPHOCYTES # (AUTO) 2.4 10^3/uL (1.5-3.5); LYMPHOCYTES % (AUTO) 25.6 %; MEAN CORPUSCULAR HEMOGLOBIN 30.4 pg (27.0-31.0); MEAN CORPUSCULAR HGB CONC 33.7 g/dL (32.0-36.0); MEAN CORPUSCULAR VOLUME 90.3 fL (80.0-94.0); MEAN PLATELET VOLUME 9.1 fL (7.4-11.4); MONOCYTES # (AUTO) 0.8 10^3/uL (0.0-1.0); MONOCYTES % (AUTO) 8.6 %; NEUTROPHILS # (AUTO) 5.7 10^3/uL (1.5-6.6); NEUTROPHILS % (AUTO) 60.8 %; PLT - PLATELET COUNT 272 10^3/uL (130-450); RED BLOOD COUNT 4.87 10^6/uL (4.70-6.10); RED CELL DISTRIBUTION WIDTH 13.3 % (12.0-15.0); WHITE BLOOD COUNT 9.4 x10^3/uL (4.8-10.8)
[2018-10-31 11:29] LABS: BILIRUBIN,URINE NEGATIVE (NEGATIVE); GLUCOSE, URINE (UA) NEGATIVE (NEGATIVE); KETONES,URINE (UA) NEGATIVE (NEGATIVE); LEUKOCYTE ESTERASE, URINE NEGATIVE (NEGATIVE); NITRITE,URINE NEGATIVE (NEGATIVE); OCCULT BLOOD,URINE NEGATIVE (NEGATIVE); PH,URINE 5.5 PH (5.0-7.5); PROTEIN,URINE NEGATIVE (NEGATIVE); UROBILINOGEN,URINE 0.2 (NORMAL) E.U./dL (NORMAL)
[2018-10-31 11:31] LABS: CLARITY,URINE CLEAR (CLEAR)
[2018-10-31 11:37] LABS: ALBUMIN 4.1 g/dL (3.2-5.5); ALBUMIN/GLOBULIN RATIO 1.3 (1.0-2.2); ALKALINE PHOSPHATASE 68 IU/L (42-121); ALT ALANINE AMINOTRANSFERASE 34 IU/L (10-60); AST ASPARTATE AMINOTRANSFERASE 31 IU/L (10-42); BILIRUBIN,TOTAL 0.7 mg/dL (0.2-1.0); BUN - BLOOD UREA NITROGEN 21 mg/dL (6-20); CALCIUM 9.5 mg/dL (8.5-10.3); CARBON DIOXIDE - CO2 28 mmol/L (21-32); CHLORIDE 99 mmol/L (101-111); CHOL/HDL RATIO 3.5 (<5.0); CHOLESTEROL 118 mg/dL; CK- CREATINE KINASE 168 IU/L (22-269); CREATININE 0.9 mg/dL (0.6-1.2); GFR - MDRD 81 (>89); GLUCOSE 154 mg/dL (70-100); HDL CHOLESTEROL 34 mg/dL; LDL CHOLESTEROL,CALCULATED 46 mg/dL; LDL/HDL RATIO 1.4 (<3.6); SODIUM 138 mmol/L (135-145); TOTAL PROTEIN 7.2 g/dL (6.7-8.2); VLDL CHOLESTEROL 38 mg/dL
[2018-10-31 11:38] LABS: HB2 TOTAL 15.7 g/dL; HEMOGLOBIN A1C 0.79 g/dL; HEMOGLOBIN A1C % 6.8 % (4.6-6.2)
[2018-10-31 11:57] LABS: CREATININE,URINE 122.2 mg/dL; MICROALBUM/CREATININE RATIO,UR 5.7 ug/mg (<30.0); MICROALBUMIN,URINE 0.7 mg/dL (0-300.0)
== END 2018-10-31 10:49 | disposition home or self-care (01) ==
LOC: LAB 10:48
PROVIDERS: ATTEND Internal Medicine
DX: N40.0 Benign prostatic hyperplasia without lower urinary tract symptoms (principal); Z79.899 Other long term (current) drug therapy; E11.9 Type 2 diabetes mellitus without complications; E29.1 Testicular hypofunction; R00.1 Bradycardia, unspecified; L98.9 Disorder of the skin and subcutaneous tissue, unspecified; E78.1 Pure hyperglyceridemia; I10 Essential (primary) hypertension; R10.9 Unspecified abdominal pain
CPT/HCPCS: 36415; 80053; 80061; 81001; 81003; 82043; 82550; 82570; 83036; 83721; 84153; 84443; 85025; 87086

== ENCOUNTER 2019-05-06 13:52 | Outpatient (CLI) | payer MEDICARE ==
[2019-05-06 14:32] LABS: CALCIUM 9.1 mg/dL (8.5-10.3)
[2019-05-06 14:39] LABS: HEMOGLOBIN A1C 0.82 g/dL; HEMOGLOBIN A1C % 7.5 % (4.6-6.2)
== END 2019-05-06 13:53 | disposition home or self-care (01) ==
LOC: LAB 13:52
PROVIDERS: ATTEND Internal Medicine
DX: Z79.899 Other long term (current) drug therapy (principal); I34.0 Nonrheumatic mitral (valve) insufficiency; E11.9 Type 2 diabetes mellitus without complications
CPT/HCPCS: 36415; 80048; 82607; 83036; 83880

== ENCOUNTER 2019-06-03 17:26 | Emergency (ER) | payer MEDICARE ==
[2019-06-03 17:51] LABS: BASOPHILS % (AUTO) 0.4 %; EOSINOPHILS # (AUTO) 0.2 10^3/uL (0.0-0.7); EOSINOPHILS % (AUTO) 1.8 %; HGB - HEMOGLOBIN 14.1 g/dL (14.0-18.0); LYMPHOCYTES # (AUTO) 2.8 10^3/uL (1.5-3.5); LYMPHOCYTES % (AUTO) 30.8 %; MEAN CORPUSCULAR HEMOGLOBIN 30.4 pg (27.0-31.0); MEAN CORPUSCULAR VOLUME 89.4 fL (80.0-94.0); MEAN PLATELET VOLUME 10.7 fL (7.4-11.4); MONOCYTES # (AUTO) 0.8 10^3/uL (0.0-1.0); MONOCYTES % (AUTO) 8.2 %; NEUTROPHILS # (AUTO) 5.3 10^3/uL (1.5-6.6); NEUTROPHILS % (AUTO) 58.5 %; PLT - PLATELET COUNT 236 10^3/uL (130-450); RED BLOOD COUNT 4.64 10^6/uL (4.70-6.10); RED CELL DISTRIBUTION WIDTH 12.9 % (12.0-15.0); WHITE BLOOD COUNT 9.1 x10^3/uL (4.8-10.8)
[2019-06-03 18:06] LABS: ALBUMIN 4.3 g/dL (3.2-5.5); ALBUMIN/GLOBULIN RATIO 1.5 (1.0-2.2); BILIRUBIN,TOTAL 0.6 mg/dL (0.2-1.0); CALCIUM 9.2 mg/dL (8.5-10.3); TOTAL PROTEIN 7.1 g/dL (6.7-8.2)
--- NOTE | 2019-06-03 18:32 | XRAY Report ---
Reason: CHEST PAIN Procedure Date: 06/03/2019 Accession Number: [id number] / [id number] Procedure: XR - Chest 2 View X-Ray CPT Code: 89268 Final Report FULL RESULT: EXAM: CHEST RADIOGRAPHY EXAM DATE: 06/03/2019 05:54 PM. CLINICAL HISTORY: CHEST PAIN. COMPARISON: CHEST 2 VIEW PA/LAT 04/14/2017 1:36 PM. TECHNIQUE: 2 views. FINDINGS: LUNGS: Unchanged elevation of the right hemidiaphragm with compressive atelectasis of the right lung base. The lungs are otherwise clear. PLEURA: No significant pleural effusion. No clinically significant pneumothorax. MEDIASTINUM: Status post median sternotomy and CABG. The heart is normal in size. BONES: No suspicious osseous lesions. IMPRESSION: 1. No acute cardiopulmonary abnormality. No significant change from prior. RADIA
--- NOTE | 2019-06-03 18:39 | ED Physician Documentation ---
History of Present Illness - Stated complaint Stated Complaint: INDIGESTION - Chief complaint Chief Complaint: Cardiac - Additonal information Additional information: This is an 84-year-old male with a history of CAD and indigestion who was sent in from clinic for cardiac work-up. He states that he has had some frequent belching for the last number of weeks, and he also has had a bandlike area of discomfort along his epigastrium. He has had improvement with simethicone and he thinks it is indigestion, but he also states that he has had heart issues in the past that presented with similar belching. He was seen in clinic today and his EKG looked okay, his PCP states he always has bradycardia. His PCP also thought this is likely indigestion but given his history of heart issues wanted him to come in for troponin testing and further work-up as needed. He denies any cough, fever. His breathing feels fine at this time Review of Systems Constitutional: denies: Fever Nose: denies: Rhinorrhea / runny nose Throat: denies: Dental pain / toothache Cardiac: denies: Chest pain / pressure Respiratory: denies: Dyspnea GI: reports: Other (Belching) Skin: denies: Rash Neurologic: denies: Generalized weakness PD PAST MEDICAL HISTORY - Past Medical History Cardiovascular: Hypertension, High cholesterol, Angina, [place] Respiratory: Pneumonia, Sleep apnea, CPAP use Endocrine/Autoimmune: Type 2 diabetes GI: GERD, GI bleed, Cholelithiasis : None HEENT: None Psych: None Musculoskeletal: Other Derm: None - Past Surgical History Past Surgical History: Yes General: Cholecystectomy, Colonoscopy, EGD Ortho: Hip replacement, Arthroscopic surgery Cardiovascular: CABG HEENT: Cataracts, Tonsil/Adenoidectomy - Present Medications Home Medications: Ambulatory Orders Medication Instructions Recorded Confirmed Amlodipine Besylate 10 mg PO DAILY 11/15/14 04/14/17 Aspirin [Aspir 81] 81 mg PO DAILY 11/15/14 04/14/17 Atenolol 50 mg PO DAILY 11/15/14 04/14/17 Losartan [Cozaar] 100 mg PO DAILY 11/15/14 04/14/17 hydroCHLOROthiazide 12.5 mg PO DAILY 11/15/14 04/14/17 [Hydrochlorothiazide] Lorazepam [Ativan] 1 mg PO DAILY PRN 12/10/14 04/14/17 Multivitamin [Multivitamins] 1 each PO DAILY 12/10/14 04/14/17 Omeprazole 20 mg PO ONCE PRN 12/10/14 04/14/17 Ubidecarenone [Co Q-10] 100 mg PO DAILY 12/10/14 04/14/17 - Allergies Allergies/Adverse Reactions: Allergies Allergy/AdvReac Type Severity Reaction Status Date / Time codeine AdvReac Severe Nausea Verified 06/03/19 17:30 hyoscyamine AdvReac Severe Rash Verified 06/03/19 17:30 - Social History Does the pt smoke?: No Smoking Status: Never smoker Does the pt drink ETOH?: No Does the pt have substance abuse?: No - Immunizations Immunizations are current?: Yes - POLST Patient has POLST: Yes PD ED PE NORMAL - Vitals Vital signs reviewed: Yes - General General: Alert and oriented X 3, No acute distress - HEENT HEENT: PERRL - Neck Neck: Supple, no meningeal sign - Cardiac Cardiac: Other (Bradycardia, Regular rhythm.) - Respiratory Respiratory: Clear bilaterally - Abdomen Abdomen: Soft, Non tender, Non distended - Derm Derm: Warm and dry - Extremities Extremities: No deformity - Neuro Neuro: Alert and oriented X 3 - Psych Psych: Normal mood, Normal affect Results - Vitals Vitals: Vital Signs - 24 hr 06/03/19 06/03/19 06/03/19 17:30 18:30 19:00 Temperature 36.7 C Heart Rate 55 L 47 L 47 L Respiratory 17 13 19 Rate Blood Pressure 181/54 H 165/62 H 173/63 H O2 Saturation 96 99 98 Oxygen O2 Source Room air - EKG (time done) 17:40 Other comments: Other comments (Rate 53, rhythm sinus, No ST elevation. Very slight ST depression <0.5mm in aVL and I, unchagned from prior EKG.) - Labs Labs: Laboratory Tests 06/03/19 06/03/19 06/03/19 17:44 17:44 17:44 WBC 9.1 RBC 4.64 L Hgb 14.1 Hct 41.5 L MCV 89.4 MCH 30.4 MCHC 34.0 RDW 12.9 Plt Count 236 MPV 10.7 Neut # (Auto) 5.3 Lymph # (Auto) 2.8 Starke # (Auto) 0.8 Eos # (Auto) 0.2 Baso # (Auto) 0.0 Absolute Nucleated RBC 0.00 Nucleated RBC % 0.0 Sodium 139 Potassium 3.6 Chloride 102 Carbon Dioxide 26 Anion Gap 11.0 BUN 22 H Creatinine 1.0 Estimated GFR (MDRD) 72 L Glucose 156 H Calcium 9.2 Total Bilirubin 0.6 AST 26 ALT 25 Alkaline Phosphatase 62 Troponin I High Sens 7.7 Total Protein 7.1 Albumin 4.3 Globulin 2.8 Albumin/Globulin Ratio 1.5 Lipase 44 PD MEDICAL DECISION MAKING - ED course Complexity details: considered differential (ACS, indigestion, gastritis, dysrhtymia, electrolyte abnormality) ED course: Pt is well appearing, with baseline bradycardia. EKG shows no convincing signs of ischemia or dysrhythmia, no change from prior. XR is unremarkable. Labs include a negative troponin, and a single high-sensitivity troponin is sufficient given pt's symptoms have been ongoing for weeks. Additionally, he had a negative stress test in the last 5 months, which is also reassuring. I do not think this represents ACS at this time, but explained that he needs to follow with his administrative tech and PCP closely. His abdomen is benign. I discussed strict return precautions with any concerning symptoms. Pt agreed and was discharged home. Departure - Departure Disposition: 01 Home, Self Care Clinical Impression: Epigastric discomfort Condition: Good Instructions: ED Epigastric Pain [facility] Follow-Up: Sydney Pitts MD [Physician No Access] - Within 1 week Comments: You were seen today for belching and epigastric discomfort. Your x-ray does not show any changes, and our high-sensitivity troponin test (which is an enzyme level that measures heart strain) is normal as well. Please continue to follow- up with your primary care provider and follow-up with a administrative tech as soon as possible. If you are developing increasing or worsening symptoms such as chest pain, difficulty breathing, coughing up blood, or any other concerning symptoms return to the emergency department Discharge Date/Time: 06/03/19 19:27
[2019-06-03 19:13] VITALS: BP 173/63
== END 2019-06-03 19:27 | disposition home or self-care (01) ==
LOC: ED 17:26
DX: R10.13 Epigastric pain (principal); R14.2 Eructation; R00.1 Bradycardia, unspecified; K21.9 Gastro-esophageal reflux disease without esophagitis; I25.10 Atherosclerotic heart disease of native coronary artery without angina pectoris; I25.2 Old myocardial infarction; Z95.1 Presence of aortocoronary bypass graft; I10 Essential (primary) hypertension; E11.9 Type 2 diabetes mellitus without complications; Z79.82 Long term (current) use of aspirin
CPT/HCPCS: 36415; 71046; 80053; 83690; 84484; 85025; 93005; 99282; 99284

== ENCOUNTER 2019-09-04 12:09 | Outpatient (CLI) | payer MEDICARE ==
[2019-09-04 12:40] LABS: HB2 TOTAL 14.1 g/dL; HEMOGLOBIN A1C 0.8 g/dL; HEMOGLOBIN A1C % 7.3 % (4.6-6.2)
[2019-09-04 12:43] LABS: CALCIUM 8.9 mg/dL (8.5-10.3)
== END 2019-09-04 12:10 | disposition home or self-care (01) ==
LOC: LAB 12:09
PROVIDERS: ATTEND Internal Medicine
DX: E11.9 Type 2 diabetes mellitus without complications (principal); Z79.899 Other long term (current) drug therapy
CPT/HCPCS: 36415; 80048; 83036

== ENCOUNTER 2019-10-28 15:11 | Outpatient (CLI) | payer MEDICARE ==
[2019-10-28 15:37] LABS: BASOPHILS % (AUTO) 0.4 %; EOSINOPHILS # (AUTO) 0.2 10^3/uL (0.0-0.7); EOSINOPHILS % (AUTO) 1.7 %; HGB - HEMOGLOBIN 14.3 g/dL (14.0-18.0); LYMPHOCYTES # (AUTO) 2.6 10^3/uL (1.5-3.5); LYMPHOCYTES % (AUTO) 25.6 %; MEAN CORPUSCULAR HGB CONC 34.5 g/dL (32.0-36.0); MEAN CORPUSCULAR VOLUME 89.6 fL (80.0-94.0); MEAN PLATELET VOLUME 10.9 fL (7.4-11.4); MONOCYTES % (AUTO) 10.1 %; NEUTROPHILS # (AUTO) 6.2 10^3/uL (1.5-6.6); NEUTROPHILS % (AUTO) 61.9 %; PLT - PLATELET COUNT 250 10^3/uL (130-450); RED BLOOD COUNT 4.62 10^6/uL (4.70-6.10); RED CELL DISTRIBUTION WIDTH 13.1 % (12.0-15.0)
[2019-10-28 15:47] LABS: BUN - BLOOD UREA NITROGEN 24 mg/dL (6-20); CARBON DIOXIDE - CO2 26 mmol/L (21-32); CHLORIDE 101 mmol/L (101-111); CHOLESTEROL 123 mg/dL; CREATININE 1.1 mg/dL (0.6-1.2); GLUCOSE 132 mg/dL (70-100); HDL CHOLESTEROL 31 mg/dL; LDL CHOLESTEROL,CALCULATED 24 mg/dL; LDL/HDL RATIO 0.8 (<3.6); SODIUM 137 mmol/L (135-145); VLDL CHOLESTEROL 68 mg/dL
== END 2019-10-28 15:12 | disposition home or self-care (01) ==
LOC: LAB 15:11
PROVIDERS: ATTEND Internal Medicine Cardiovascular Disease
DX: I25.10 Atherosclerotic heart disease of native coronary artery without angina pectoris (principal); E78.5 Hyperlipidemia, unspecified; I10 Essential (primary) hypertension
CPT/HCPCS: 36415; 80048; 80061; 83721; 85025

== ENCOUNTER 2020-03-10 12:53 | Outpatient (CLI) | payer MEDICARE ==
[2020-03-10 13:41] VITALS: BP 154/60
--- NOTE | 2020-03-10 13:41 | SLEEP CARE CONSULTATION ---
Information from patient questionnaire entered by Cathie Faye. I have reviewed and concur with the information entered by Cathie Faye. This document represents the service I personally performed and the decisions made by me, Susana Mcallister, RN, MSN, PASSENGER SCREENER. History of Present Illness Service Date and Time: 03/10/2020 1253 Previous diagnosis: Extremely Severe, Obstructive Sleep Apnea-Hypopnea Syndrome AHI: 97.8 (in 2009) Reason for follow up: annual (last seen 2018) Equipment type: CPAP Equipment obtained from: [employer] (no supplies since 6 months) Mask style: Nasal Mask brand: Respironics (Nuance Pro) Backup mask available: Yes (old mask ) Last cushion change: 3-6 months Prior sleep studies: Yes Year and Where: 2009 - [facility], 2004 - [facility] Type of Sleep Study: Polysomnography CPAP Compliance Data - Data Reviewed with Patient Average duration of nightly device use: 7.45 Compliance rate %: 99.4 (180 days) Current pressure setting (cmH2O): 10 Humidity settin Heated hose settin Average residual AHI: 2.7 Average large leak: 3 min 23 sec Subjective Patient concerns: reports: mask leak noise (rare), nasal congestion (seasonal allergies only / none now ). denies: aerophagia, mask discomfort, air blowing in eyes, condensation in mask/hose, dry mouth, nose, throat, epistaxis, other Observed to snore while using device: No Current pressure setting perceived as: comfortable On therapy, patient: reports: sleeping better, awakening more refreshed, being more awake and alert during the day, more rested overall. denies: drowsiness while driving Initial Fay Sleepiness Scale score: 12 (in 2009) Current Fay Sleepiness Scale score: 3 Allergies and Home Medications Known drug allergies: Yes Home medication list reviewed: No (carvedilol replaced atenolol, stopped amilodipine/replaced withhydralzaine ) Review of Systems Review of systems same as previous: No (edema left leg after hip replacement / less edema with accupuncture) Physical Exam Blood Pressure: 154/60 (monitors at home usual range 120-130/60) Cuff size: long Heart Rate: 46 (usual pulse range 42) O2 Saturation: 98 Height: 5 ft 7 in Weight: 224 lb Body Mass Index: 35.0 BMI Classification: Obese Impression and Plan 1. Obstructive Sleep Apnea-Hypopnea Syndrome, extremely severe, with good treatment compliance and good apnea control. On CPAP therapy, the patient has better sleep quality and is more rested overall. Patient has gained weight. Currently patients BMI is 35.2 obesity class . Obesity increases the risk of apnea, CPAP pressure requirements and overall health risks especially cardiovascular and diabetes. Thus patient is advised to lose weight. Weight loss can be done with reducing portion size, reducing refined foods and balancing content with vegetables, fruit and protein. In addition tracking food intake will allow awareness of how to modify diet to achieve weight loss goals. Also eating more slowly will allow more awareness of food intake and enjoyment of food while assisting patient to modify intake at each meal. A diet consultation can be helpful in achieving optimal weight loss goals. The BMI chart was reviewed. The patient would like to reduce to 210 pounds bringing their BMI down to about 32. Patient encouraged to discuss their weight loss goals with their PCP and consider a referral to a professor of literacy. He saw a fund director a year or two ago and was told to reduce portions and to reduce butter intake but using whipped instead of regular. I again reviewed the importance of a diet consultation with his spouse for optimal weight loss and support through the process. The patient's CPAP pressure range should accommodate some weight loss and he does not want to change to autoCPAP range at this time. Symptoms to report for additional pressure adjustment discussed. Patient's apnea severity and rationale for treatment to reduce apnea, improve sleep quality and reduce cardiovascular and cerebrovascular events was reviewed. I also reviewed the benefit of consistent device use of CPAP for hypertension. * Continue CPAP pressure at 10 cmH2O * Notify me if snoring with mask or feeling that the pressure is too much or too little * Attempt to lose weight * Follow up with PCP for professor of literacy referral * Call this office if any problems using CPAP * Return for follow up in 1 year , or sooner if concerns arise Visit Type: In Office Time Spent with Patient (minutes): 28 Provider Statement: I spent 100% of the Face to Face Visit with the patient with greater than 50% spent counseling the patient and coordination of care.
== END 2020-03-10 12:54 | disposition home or self-care (01) ==
LOC: SC 12:53
PROVIDERS: ATTEND Nurse Practitioner Family
DX: G47.33 Obstructive sleep apnea (adult) (pediatric) (principal); E66.9 Obesity, unspecified; Z68.35 Body mass index [BMI] 35.0-35.9, adult
CPT/HCPCS: 99214; G0463; 99212

== ENCOUNTER 2020-07-05 11:22 | Outpatient (CLI) | payer MEDICARE ==
--- NOTE | 2020-07-05 09:37 | XRAY Report ---
PROCEDURE: Shoulder 3 View RT INDICATIONS: R SHOULDER PX TECHNIQUE: 4 views of the shoulder were acquired. COMPARISON: None. FINDINGS: Bones: No fractures or dislocations. Severe AC joint generation No suspicious bony lesions. Visual ized ribs appear intact. Soft tissues: Early calcific tendinitis. Additional dystrophic ossification and humeral diaphysis. IMPRESSION: Subtle calcific tendinitis Severe AC joint degeneration. If the patient's pain or other symptoms persist, consider further evaluation with MRI. Reviewed by: Yonis Del Rosario MD on 07/05/2020 9:36 AM PST Approved by: Yonis Del Rosario MD on 07/05/2020 9:36 AM PST Station ID: [id number]
== END 2020-07-05 23:59 | disposition home or self-care (01) ==
LOC: DI.N 11:22
PROVIDERS: ATTEND Physician Assistant
DX: M19.011 Primary osteoarthritis, right shoulder (principal); M75.31 Calcific tendinitis of right shoulder

== ENCOUNTER 2020-09-08 15:14 | Outpatient (CLI) | payer MEDICARE ==
[2020-09-08 16:29] LABS: CALCIUM 9.3 mg/dL (8.5-10.3); POTASSIUM 4.1 mmol/L (3.5-5.0)
[2020-09-08 19:40] LABS: ESTIMATED AVERAGE GLUCOSE 151 mg/dL (70-100); HEMOGLOBIN A1c% 6.9 % (4.27-6.07)
== END 2020-09-08 15:15 | disposition home or self-care (01) ==
LOC: LAB 15:14
PROVIDERS: ATTEND Internal Medicine
DX: E11.9 Type 2 diabetes mellitus without complications (principal); R20.2 Paresthesia of skin; Z79.899 Other long term (current) drug therapy
CPT/HCPCS: 36415; 80048; 82607; 83036

== ENCOUNTER 2020-09-17 10:51 | Outpatient (CLI) | payer MEDICARE ==
[2020-09-17 11:16] LABS: BASOPHILS % (AUTO) 0.4 %; EOSINOPHILS # (AUTO) 0.2 10^3/uL (0.0-0.7); EOSINOPHILS % (AUTO) 2.5 %; HCT - HEMATOCRIT 39.9 % (42.0-52.0); HGB - HEMOGLOBIN 13.5 g/dL (14.0-18.0); LYMPHOCYTES # (AUTO) 2.5 10^3/uL (1.5-3.5); LYMPHOCYTES % (AUTO) 29.1 %; MEAN CORPUSCULAR HEMOGLOBIN 31.3 pg (27.0-31.0); MEAN CORPUSCULAR HGB CONC 33.8 g/dL (32.0-36.0); MEAN CORPUSCULAR VOLUME 92.4 fL (80.0-94.0); MEAN PLATELET VOLUME 11.3 fL (7.4-11.4); MONOCYTES # (AUTO) 0.7 10^3/uL (0.0-1.0); MONOCYTES % (AUTO) 8.5 %; NEUTROPHILS % (AUTO) 59.3 %; PLT - PLATELET COUNT 203 10^3/uL (130-450); RED BLOOD COUNT 4.32 10^6/uL (4.70-6.10); RED CELL DISTRIBUTION WIDTH 13.2 % (12.0-15.0); WHITE BLOOD COUNT 8.5 x10^3/uL (4.8-10.8)
[2020-09-17 11:38] LABS: ALKALINE PHOSPHATASE 61 IU/L (42-121); ALT ALANINE AMINOTRANSFERASE 23 IU/L (10-60); AMYLASE 56 U/L (28-100); AST ASPARTATE AMINOTRANSFERASE 24 IU/L (10-42); BILIRUBIN,DIRECT 0.1 mg/dL (0.1-0.5); BILIRUBIN,TOTAL 0.8 mg/dL (0.2-1.0); CHOL/HDL RATIO 3.3 (<5.0); CHOLESTEROL 116 mg/dL; HDL CHOLESTEROL 35 mg/dL; LDL CHOLESTEROL,CALCULATED 45 mg/dL; LDL/HDL RATIO 1.3 (<3.6); LIPASE 24 U/L (22-51); TOTAL PROTEIN 6.8 g/dL (6.7-8.2); TRIGLYCERIDES 180 mg/dL; VLDL CHOLESTEROL 36 mg/dL
[2020-09-17 11:43] LABS: CREATININE,URINE 166.9 mg/dL
== END 2020-09-17 10:52 | disposition home or self-care (01) ==
LOC: LAB 10:51
PROVIDERS: ATTEND Internal Medicine
DX: I25.10 Atherosclerotic heart disease of native coronary artery without angina pectoris (principal); Z79.899 Other long term (current) drug therapy; E78.1 Pure hyperglyceridemia; D64.9 Anemia, unspecified; R10.9 Unspecified abdominal pain; E11.9 Type 2 diabetes mellitus without complications
CPT/HCPCS: 36415; 80061; 80076; 82043; 82150; 82570; 83690; 83721; 84443; 85025

== ENCOUNTER 2020-11-08 06:26 | Day surgery (SDC) | payer MEDICARE ==
--- NOTE | 2020-11-08 07:19 | HISTORY & PHYSICAL EXAMINATION ---
Chief Complaint - Chief Complaint Chief Complaint: history colon polyp History of Present Illness - History Obtained From Records Reviewed: yes History obtained from: pt Exam Limitations: none - History of Present Illness HPI Comment/Other: He had a colon polyp removed in 2016. He presents for colon cancer surveillance. History - Past Medical History Cardiovascular: reports: Hypertension, High cholesterol, Coronary artery disease, Angina, [place], Other Respiratory: reports: Sleep apnea Endocrine/Autoimmune: reports: Type 2 diabetes GI: reports: GERD : reports: None HEENT: reports: None Psych: reports: None Musculoskeletal: reports: Other Derm: reports: None MRSA Hx?: No - Past Surgical History General: reports: Cholecystectomy, Colonoscopy, EGD Ortho: reports: Hip replacement Cardiovascular: reports: CABG HEENT: reports: Cataracts, Tonsil/Adenoidectomy - POLST Patient has POLST: Yes Meds/Allgy - Home Medications Home Medications: Ambulatory Orders Medication Instructions Recorded Confirmed Amlodipine Besylate 10 mg PO DAILY 11/15/14 04/14/17 Aspirin [Aspir 81] 81 mg PO DAILY 11/15/14 04/14/17 Losartan [Cozaar] 100 mg PO DAILY 11/15/14 04/14/17 atenoloL [Atenolol] 50 mg PO DAILY 11/15/14 04/14/17 hydroCHLOROthiazide 12.5 mg PO DAILY 11/15/14 04/14/17 [Hydrochlorothiazide] Lorazepam [Ativan] 1 mg PO DAILY PRN 12/10/14 04/14/17 Multivitamin [Multivitamins] 1 each PO DAILY 12/10/14 04/14/17 Omeprazole 20 mg PO ONCE PRN 12/10/14 04/14/17 Ubidecarenone [Co Q-10] 100 mg PO DAILY 12/10/14 04/14/17 - Allergies Allergies/Adverse Reactions: Allergies Allergy/AdvReac Type Severity Reaction Status Date / Time codeine AdvReac Severe Nausea Verified 06/03/19 17:30 hyoscyamine AdvReac Severe Rash Verified 06/03/19 17:30 Review of Systems - Other Findings Other Findings: 10 pt ros as above otherwise unremarkable Exam - Vital Signs Reviewed Vital Signs: Yes Vital Signs: Vital Signs x48h Temp Pulse Resp BP Pulse Ox 11/08/20 06:48 36.5 C 50 L 16 154/81 H 97 - Physical Exam General Appearance: positive: No acute distress, Alert Eyes Bilateral: positive: Normal inspection, PERRL, EOMI ENT: positive: No signs of dehydration Neck: positive: No JVD Respiratory: positive: Breath sounds nml Cardiovascular: positive: Regular rate & rhythm Abdomen: positive: Non-tender, No distention Neurologic/Psychiatric: positive: Oriented x3 Conclusion/Plan - Problem List (1) History of adenomatous polyp of colon Conclusion/Plan: plan colonoscopy . parq held and consent obtained
[2020-11-08] MEDS ORDERED: fentaNYL 100 MCG/2 ML VIAL ONE (07:26)
[2020-11-08] MEDS ORDERED: MIDAZOLAM 2 MG/2 ML VIAL ONE (07:26)
[2020-11-08 08:22] VITALS: BP 158/65
== END 2020-11-08 06:27 | disposition home or self-care (01) ==
LOC: SDS 06:26
PROVIDERS: ATTEND Surgery
DX: Z12.11 Encounter for screening for malignant neoplasm of colon (principal); Z86.010 Personal history of colon polyps; K57.30 Diverticulosis of large intestine without perforation or abscess without bleeding; I10 Essential (primary) hypertension; E78.00 Pure hypercholesterolemia, unspecified; I25.119 Atherosclerotic heart disease of native coronary artery with unspecified angina pectoris; I25.2 Old myocardial infarction; G47.30 Sleep apnea, unspecified; E11.9 Type 2 diabetes mellitus without complications; K21.9 Gastro-esophageal reflux disease without esophagitis; Z95.1 Presence of aortocoronary bypass graft; Z90.49 Acquired absence of other specified parts of digestive tract; Z79.82 Long term (current) use of aspirin

== ENCOUNTER 2021-01-19 10:32 | Outpatient (CLI) | payer MEDICARE ==
[2021-01-19 11:10] LABS: BASOPHILS % (AUTO) 0.4 %; EOSINOPHILS # (AUTO) 0.2 10^3/uL (0.0-0.7); EOSINOPHILS % (AUTO) 2.1 %; HGB - HEMOGLOBIN 13.1 g/dL (14.0-18.0); LYMPHOCYTES # (AUTO) 2.1 10^3/uL (1.5-3.5); LYMPHOCYTES % (AUTO) 18.9 %; MEAN CORPUSCULAR HEMOGLOBIN 30.7 pg (27.0-31.0); MEAN CORPUSCULAR HGB CONC 33.6 g/dL (32.0-36.0); MEAN CORPUSCULAR VOLUME 91.3 fL (80.0-94.0); MEAN PLATELET VOLUME 11.2 fL (7.4-11.4); MONOCYTES # (AUTO) 0.9 10^3/uL (0.0-1.0); MONOCYTES % (AUTO) 8.2 %; NEUTROPHILS # (AUTO) 7.8 10^3/uL (1.5-6.6); NEUTROPHILS % (AUTO) 70.1 %; PLT - PLATELET COUNT 202 10^3/uL (130-450); RED BLOOD COUNT 4.27 10^6/uL (4.70-6.10); RED CELL DISTRIBUTION WIDTH 12.8 % (12.0-15.0); WHITE BLOOD COUNT 11.1 x10^3/uL (4.8-10.8)
[2021-01-19 11:22] LABS: BUN - BLOOD UREA NITROGEN 29 mg/dL (6-20); CALCIUM 8.9 mg/dL (8.5-10.3); CARBON DIOXIDE - CO2 23 mmol/L (21-32); CHLORIDE 106 mmol/L (101-111); CHOL/HDL RATIO 3.6 (<5.0); CHOLESTEROL 121 mg/dL; CREATININE 1.2 mg/dL (0.6-1.2); GFR - MDRD 58 (>89); GLUCOSE 161 mg/dL (70-100); HDL CHOLESTEROL 34 mg/dL; LDL CHOLESTEROL,CALCULATED 44 mg/dL; LDL/HDL RATIO 1.3 (<3.6); POTASSIUM 3.9 mmol/L (3.5-5.0); SODIUM 139 mmol/L (135-145); TRIGLYCERIDES 213 mg/dL; VLDL CHOLESTEROL 43 mg/dL
== END 2021-01-19 10:33 | disposition home or self-care (01) ==
LOC: LAB 10:32
PROVIDERS: ATTEND Internal Medicine Cardiovascular Disease
DX: E78.5 Hyperlipidemia, unspecified (principal); I10 Essential (primary) hypertension
CPT/HCPCS: 36415; 80048; 80061; 83721; 85025

== ENCOUNTER 2021-03-09 13:43 | Outpatient (CLI) | payer MEDICARE ==
--- NOTE | 2021-03-09 14:13 | SLEEP CARE CONSULTATION ---
Information from patient questionnaire entered by Cathie Faye. I have reviewed and concur with the information entered by Cathie Faye. This document represents the service I personally performed and the decisions made by , Vonda Gonzalez ARNP. History of Present Illness Service Date and Time: 03/09/2021 1343 Previous diagnosis: Extremely Severe, Obstructive Sleep Apnea-Hypopnea Syndrome AHI: 97.8 (in 2009) Reason for follow up: annual (last seen 03/2020) Equipment type: CPAP Equipment obtained from: [employer] (getting supplies as needed) Mask style: Nasal Backup mask available: No (will need to keep old mask when replaced) Last cushion change: 2-3 month Prior sleep studies: Yes Year and Where: 2009 - [facility], 2004 - [facility] additional information: AFRICA VARGAS was diagnosed to have extremely severe, AHI 97.8, obstructive sleep apnea-hypopnea syndrome and returned today for CPAP therapy annual follow-up. CPAP Compliance Data - Data Reviewed with Patient Average duration of nightly device use: 7 hr 28 min Compliance rate %: 98.9 (180 days) Current pressure setting (cmH2O): 10 Humidity settin Heated hose settin Average residual AHI: 4.8 Average large leak: 7 min 57 sec Subjective Missed days of use due to: reports: other (power loss) Patient concerns: reports: nasal congestion (occasional). denies: aerophagia, mask discomfort, air blowing in eyes, mask leak noise, condensation in mask/hose, dry mouth, nose, throat, epistaxis, other Observed to snore while using device: No Current pressure setting perceived as: comfortable On therapy, patient: reports: sleeping better, awakening more refreshed, being more awake and alert during the day, more rested overall. denies: drowsiness while driving Initial Reese Sleepiness Scale score: 12 (in 2009) Current Reese Sleepiness Scale score: 2 Allergies and Home Medications Home medication list reviewed: Yes Allergy and home medication list: Cozaar Chlorthalidone Glipizide Carvedilol Amlodipine Hydralazine Aspirin Rosuvastatin Omeprazole Ativan as needed CoQ-10 Review of Systems Review of systems same as previous: Yes (no changes) Physical Exam Heart Rate: 45 O2 Saturation: 96 Height: 5 ft 6 in Weight: 219 lb Body Mass Index: 35.3 BMI Classification: Obese Impression and Plan 1. Obstructive Sleep Apnea-Hypopnea Syndrome, extremely severe, with good treatment compliance and good apnea control. On CPAP therapy, the patient has better sleep quality and is more rested overall. Patient is very satisfied with his current therapy. He has been informed ot the Petey RespirTrellos recall. Patient has already registered their device for the recall. Patient denies any black particles seen in machine or hoses, any unusual odors coming from device. Patient has not experienced any physical symptoms such as upper airway irritation, headache, skin or eye irritation, asthma, nausea/vomiting, difficulty breathing or chest pain. Patient informed that they may use an inline CPAP filter that they can obtain online to reduce chance of any particles being inhaled or ingested. We discussed thoroughly the health risks of not using the CPAP versus continuing use with the filter in place. If patient is not able to sleep due to waking up choking, gasping for air or other respiratory distress that they may decide to continue using it until it is either replaced or repaired. Patient voiced understanding and agreement with plan. Patient's apnea severity and rationale for treatment to reduce apnea, improve sleep quality and reduce cardiovascular and cerebrovascular events was reviewed. I also reviewed the benefit of consistent device use of CPAP for hypertension. Patient was encouraged to lose weight for their overall health and to reduce apneas. * Continue CPAP pressure at 10 cmH2O * Notify me if snoring with mask or feeling that the pressure is too much or too little * Attempt to lose weight * Call this office if any problems using CPAP * Return for follow up in 1 year, or sooner if concerns arise Counseling Topics: Spare mask, Weight loss health impact Visit Type: In Office Time Spent with Patient (minutes): 16 Provider Statement: I spent 100% of the Face to Face Visit with the patient with greater than 50% spent counseling the patient and coordination of care.
== END 2021-03-09 13:44 | disposition home or self-care (01) ==
LOC: SC 13:43
PROVIDERS: ATTEND Nurse Practitioner Family
DX: G47.33 Obstructive sleep apnea (adult) (pediatric) (principal); E66.9 Obesity, unspecified; Z68.35 Body mass index [BMI] 35.0-35.9, adult
CPT/HCPCS: 99212; G0463

== ENCOUNTER 2021-03-11 11:24 | Outpatient (CLI) | payer MEDICARE ==
[2021-03-11 12:52] LABS: ESTIMATED AVERAGE GLUCOSE 146 mg/dL (70-100); HEMOGLOBIN A1c% 6.7 % (4.27-6.07)
== END 2021-03-11 11:25 | disposition home or self-care (01) ==
LOC: LAB 11:24
PROVIDERS: ATTEND Internal Medicine
DX: E11.9 Type 2 diabetes mellitus without complications (principal); R20.0 Anesthesia of skin
CPT/HCPCS: 36415; 82607; 83036

== ENCOUNTER 2021-04-23 13:39 | Outpatient (CLI) | payer MEDICARE | END 2021-04-23 23:59 | disposition home or self-care (01) | LOC: LAB.N 13:39 | PROVIDERS: ATTEND Family Medicine | DX: L03.116 Cellulitis of left lower limb (principal) | CPT/HCPCS: 87070; 87077; 87181; 87205 ==

== ENCOUNTER 2021-06-28 15:24 | Emergency (ER) | payer MEDICARE ==
--- NOTE | 2021-06-28 15:51 | ED Physician Documentation ---
PD HPI LOWER EXT INJURY - Stated complaint Stated Complaint: LT CALF SWELLING - Chief complaint Chief Complaint: Ext Problem - History obtained from History obtained from: Patient - History of Present Illness PD HPI LOW EXT INJURY LOCATION: Left, Calf Type of injury: No: Fall, Twist Where injury occurred: Home (The patient states he has not had any notable activity or injury to account for calf pain. He has noticed increased swelling and pain in the left calf over the last 2 to 3 days. No redness or sores. No chest pain or dyspnea.) Timing - onset: How many days ago (2-3) Timing - duration: Days (2-3) Timing - details: Gradual onset, Still present Worsened by: Palpating, Other (walking causes calf pain.) Associated symptoms: Swelling. No: Weakness, Numbness, Discolored Contributing factors: No: Anticoagulated Similar symptoms before: Has not had sx before Recently seen: Not recently seen Review of Systems Constitutional: denies: Fever, Chills Cardiac: denies: Chest pain / pressure Respiratory: denies: Dyspnea Skin: denies: Rash, Lesions Neurologic: denies: Focal weakness, Numbness PD PAST MEDICAL HISTORY - Past Medical History Cardiovascular: Hypertension, High cholesterol, Coronary artery disease, Angina, [place], Other Respiratory: Sleep apnea Endocrine/Autoimmune: Type 2 diabetes GI: GERD : None HEENT: None Psych: None Musculoskeletal: Other Derm: None - Past Surgical History Past Surgical History: Yes General: Cholecystectomy, Colonoscopy, EGD Ortho: Hip replacement Cardiovascular: CABG HEENT: Cataracts, Tonsil/Adenoidectomy - Present Medications Home Medications: Ambulatory Orders Medication Instructions Recorded Confirmed Amlodipine Besylate 10 mg PO DAILY 11/15/14 04/14/17 Aspirin [Aspir 81] 81 mg PO DAILY 11/15/14 04/14/17 Losartan [Cozaar] 100 mg PO DAILY 11/15/14 04/14/17 atenoloL [Atenolol] 50 mg PO DAILY 11/15/14 04/14/17 hydroCHLOROthiazide 12.5 mg PO DAILY 11/15/14 04/14/17 [Hydrochlorothiazide] Lorazepam [Ativan] 1 mg PO DAILY PRN 12/10/14 04/14/17 Multivitamin [Multivitamins] 1 each PO DAILY 12/10/14 04/14/17 Omeprazole 20 mg PO ONCE PRN 12/10/14 04/14/17 Ubidecarenone [Co Q-10] 100 mg PO DAILY 12/10/14 04/14/17 - Allergies Allergies/Adverse Reactions: Allergies Allergy/AdvReac Type Severity Reaction Status Date / Time codeine AdvReac Severe Nausea Verified 06/28/21 15:38 hyoscyamine AdvReac Severe Rash Verified 06/28/21 15:38 - Social History Does the pt smoke?: No Smoking Status: Never smoker Does the pt drink ETOH?: No Does the pt have substance abuse?: No - Immunizations Immunizations are current?: Yes - POLST Patient has POLST: Yes PD ED PE NORMAL - Vitals Vital signs reviewed: Yes - General General: Alert and oriented X 3, No acute distress, Well developed/nourished - Cardiac Cardiac: RRR, No murmur - Respiratory Respiratory: No respiratory distress, Clear bilaterally - Derm Derm: Normal color, Warm and dry - Extremities Extremities: Other (He has compression socks on both lower legs to just below the knees. There is a palpable difference in size between the left and right calves with the left being bigger and slightly tender posteriorly.) - Neuro Neuro: Alert and oriented X 3, No motor deficit, No sensory deficit, Normal speech Results - Vitals Vitals: Vital Signs - 24 hr 06/28/21 06/28/21 06/28/21 15:38 20:20 20:27 Temperature 36.5 C Heart Rate 60 45 L Respiratory 16 16 16 Rate Blood Pressure 160/60 H 145/58 H O2 Saturation 97 98 Oxygen O2 Source Room air - Rads (name of study) duplex left lower ext Radiology: Prelim report reviewed, See rad report PD MEDICAL DECISION MAKING - ED course Complexity details: considered differential (2 days of left calf pain and swelling. Can evaluate with ultrasound for DVT.), d/w patient Departure - Departure Disposition: 01 Home, Self Care Clinical Impression: Pain of left calf, Lower leg edema Condition: Stable Record reviewed to determine appropriate education?: Yes Instructions: ED Muscle Pain Leg Cramps Follow-Up: Grisel Dalal MD [Primary Care Provider] - Within 1 week Comments: Cause of your pain is unclear today. Your ultrasound does not show any DVT. Please follow-up with your doctor for further care. Return if you worsen. Discharge Date/Time: 06/28/21 20:34
[2021-06-28] MEDS: ACETAMINOPHEN 325 MG TABLET PO STA (16:39)
--- NOTE | 2021-06-28 19:49 | ED Physician Documentation ---
ED Addendum - Addendum Addendum: 06/28/21 19:48 Patient was signed out to me by Dr. Ramirez awaiting a duplex ultrasound of the left lower extremity. This is negative for DVT. There does appear to be a small Garcia's cyst. We will have the patient follow-up with his doctor for further care. Patient counseled regarding signs and symptoms for which I believe and urgent re-evaluation would be necessary. Patient with good understanding of and agreement to plan and is comfortable going home at this time This document was made in part using voice recognition software. While efforts are made to proofread this document, sound alike and grammatical errors may occur. Departure - Departure Disposition: 01 Home, Self Care Clinical Impression: Pain of left calf, Lower leg edema Condition: Stable Instructions: ED Muscle Pain Leg Cramps Follow-Up: Grisel Dalal MD [Primary Care Provider] - Within 1 week Comments: Cause of your pain is unclear today. Your ultrasound does not show any DVT. Please follow-up with your doctor for further care. Return if you worsen.
[2021-06-28 20:20] VITALS: BP 145/58
--- NOTE | 2021-06-28 20:58 | Ultrasound Report ---
PROCEDURE: Duplex Ext Veins Left INDICATIONS: Calf pain and swelling over the last few days. TECHNIQUE: Real-time imaging, as well as color and pulse Doppler interrogation, were performed of the lower extr emity deep veins from the inguinal ligament to the popliteal fossa. COMPARISON: None. FINDINGS: The deep veins are normally compressible, and free of intraluminal thrombus. Color and pu lse Doppler demonstrate normal phasic intraluminal flow. There is normal augmentation response to di stal compression maneuver. Left calf veins not well visualized due to soft tissue edema. 2.2 x 1.3 x 2.0 cm popliteal cyst. Nonspecific soft tissue edema noted in the left calf. IMPRESSION: No evidence of deep vein thrombosis involving the left lower extremity. Please note left calf veins a re poorly visualized due to calf edema. Reviewed by: Loraine Lopez MD, PhD on 06/28/2021 8:56 PM PST Approved by: Loraine Lopez MD, PhD on 06/28/2021 8:56 PM PST Station ID: [id number]
== END 2021-06-28 20:34 | disposition home or self-care (01) ==
LOC: ED 15:24
DX: M79.662 Pain in left lower leg (principal); R60.9 Edema, unspecified; I10 Essential (primary) hypertension; E11.9 Type 2 diabetes mellitus without complications
CPT/HCPCS: 99283; 99284

== ENCOUNTER 2021-09-28 10:32 | Outpatient (CLI) | payer MEDICARE ==
[2021-09-28 10:55] LABS: BASOPHILS % (AUTO) 0.5 %; EOSINOPHILS # (AUTO) 0.2 10^3/uL (0.0-0.7); EOSINOPHILS % (AUTO) 1.9 %; HCT - HEMATOCRIT 37.8 % (42.0-52.0); HGB - HEMOGLOBIN 12.9 g/dL (14.0-18.0); LYMPHOCYTES # (AUTO) 2.1 10^3/uL (1.5-3.5); LYMPHOCYTES % (AUTO) 24.7 %; MEAN CORPUSCULAR HEMOGLOBIN 30.2 pg (27.0-31.0); MEAN CORPUSCULAR HGB CONC 34.1 g/dL (32.0-36.0); MEAN CORPUSCULAR VOLUME 88.5 fL (80.0-94.0); MEAN PLATELET VOLUME 10.9 fL (7.4-11.4); MONOCYTES # (AUTO) 0.7 10^3/uL (0.0-1.0); MONOCYTES % (AUTO) 8.2 %; NEUTROPHILS # (AUTO) 5.4 10^3/uL (1.5-6.6); NEUTROPHILS % (AUTO) 64.3 %; PLT - PLATELET COUNT 190 10^3/uL (130-450); RED BLOOD COUNT 4.27 10^6/uL (4.70-6.10); RED CELL DISTRIBUTION WIDTH 13.1 % (12.0-15.0); WHITE BLOOD COUNT 8.5 x10^3/uL (4.8-10.8)
[2021-09-28 11:11] LABS: ALBUMIN 3.9 g/dL (3.2-5.5); ALBUMIN/GLOBULIN RATIO 1.4 (1.0-2.2); ALKALINE PHOSPHATASE 58 IU/L (42-121); ALT ALANINE AMINOTRANSFERASE 23 IU/L (10-60); AST ASPARTATE AMINOTRANSFERASE 21 IU/L (10-42); BILIRUBIN,TOTAL 0.7 mg/dL (0.2-1.0); BUN - BLOOD UREA NITROGEN 32 mg/dL (6-20); CARBON DIOXIDE - CO2 24 mmol/L (21-32); CHLORIDE 104 mmol/L (101-111); CHOL/HDL RATIO 3.7 (<5.0); CHOLESTEROL 132 mg/dL; CK- CREATINE KINASE 144 IU/L (22-269); CREATININE 1.3 mg/dL (0.6-1.2); GFR - MDRD 53 (>89); GLUCOSE 166 mg/dL (70-100); HDL CHOLESTEROL 36 mg/dL; LDL CHOLESTEROL,CALCULATED 55 mg/dL; LDL/HDL RATIO 1.5 (<3.6); POTASSIUM 4.3 mmol/L (3.5-5.0); SODIUM 138 mmol/L (135-145); TOTAL PROTEIN 6.7 g/dL (6.7-8.2); TRIGLYCERIDES 207 mg/dL; VLDL CHOLESTEROL 41 mg/dL
[2021-09-28 11:20] LABS: THYROID STIMULATING HORMONE 3.63 uIU/mL (0.34-5.60)
[2021-09-28 11:26] LABS: CREATININE,URINE 165.7 mg/dL; MICROALBUM/CREATININE RATIO,UR 17.5 ug/mg (<30.0); MICROALBUMIN,URINE 2.9 mg/dL (0-300.0)
[2021-09-28 12:11] LABS: ESTIMATED AVERAGE GLUCOSE 163 mg/dL (70-100); HEMOGLOBIN A1c% 7.3 % (4.27-6.07)
== END 2021-09-28 10:33 | disposition home or self-care (01) ==
LOC: LAB 10:32
PROVIDERS: ATTEND Internal Medicine
DX: Z00.00 Encounter for general adult medical examination without abnormal findings (principal); D64.9 Anemia, unspecified; Z13.6 Encounter for screening for cardiovascular disorders; Z11.59 Encounter for screening for other viral diseases; E11.9 Type 2 diabetes mellitus without complications; M48.00 Spinal stenosis, site unspecified; K58.9 Irritable bowel syndrome, unspecified; I25.10 Atherosclerotic heart disease of native coronary artery without angina pectoris; G47.33 Obstructive sleep apnea (adult) (pediatric); I10 Essential (primary) hypertension; M79.604 Pain in right leg; M79.605 Pain in left leg
CPT/HCPCS: 36415; 80053; 80061; 82043; 82550; 82570; 82607; 83036; 83721; 83880; 84443; 85025

== ENCOUNTER 2021-12-26 10:52 | Outpatient (CLI) | payer MEDICARE ==
--- NOTE | 2021-12-26 17:09 | Ultrasound Report ---
PROCEDURE: Duplex Lwr Ext Arterial Bilat INDICATIONS: CLAUDICATION TECHNIQUE: Color and pulse Doppler interrogation was performed of both lower extremity arterial systems, with im age documentation. COMPARISON: None FINDINGS: Right lower extremity: Common femoral artery: 177 cm/sec, with biphasic flow. Deep femoral artery: 97 cm/sec, with biphasic flow. Proximal superficial femoral artery: 155 cm/sec, with biphasic flow. Mid superficial femoral artery: 135 cm/sec, with triphasic flow. Distal superficial femoral artery: 115 cm/sec, with biphasic flow. Popliteal artery: 97 cm/sec, with biphasic flow. Posterior tibial artery: 129 cm/sec, with triphasic flow. Anterior tibial artery/dorsalis pedis: 96 cm/sec, with biphasic flow. Garzon-scale imaging description : mild calcific plaque Left lower extremity: Common femoral artery: 135 cm/sec, with biphasic flow. Deep femoral artery: 83 cm/sec, with biphasic flow. Proximal superficial femoral artery: 136 cm/sec, with biphasic flow. Mid superficial femoral artery: 160 cm/sec, with biphasic flow. Distal superficial femoral artery: 104 cm/sec, with biphasic flow. Popliteal artery: 102 cm/sec, with biphasic flow. Posterior tibial artery: 145 cm/sec, with biphasic flow. Anterior tibial artery/dorsalis pedis: 136 cm/sec, with triphasic flow. Garzon-scale imaging description: Mild calcific plaque IMPRESSION: No evidence of arterial insufficiency to the bilateral lower extremities. Reviewed by: Nury Rivera MD on 12/26/2021 4:07 PM HIRAL Approved by: Nury Rivera MD on 12/26/2021 4:07 PM HIRAL Station ID: [id number]
== END 2021-12-26 10:53 | disposition home or self-care (01) ==
LOC: DI 10:52
PROVIDERS: ATTEND Internal Medicine
DX: I70.219 Atherosclerosis of native arteries of extremities with intermittent claudication, unspecified extremity (principal)
CPT/HCPCS: 93925

== ENCOUNTER 2022-05-02 13:45 | Outpatient (CLI) | payer MEDICARE ==
--- NOTE | 2022-05-02 14:20 | SLEEP CARE CONSULTATION ---
Information from patient questionnaire entered by Mindy Yates. I have reviewed and concur with the information entered by Mindy Yates. This document represents the service I personally performed and the decisions made by me, Vonda Gonzalez ARNP. History of Present Illness Service Date and Time: 05/02/2022 1345 Previous diagnosis: Extremely Severe, Obstructive Sleep Apnea-Hypopnea Syndrome AHI: 97.8 (in 2009) Reason for follow up: annual (LAST SEEN 03-22) Equipment type: CPAP ([facility]) Equipment obtained from: [facility] (getting supplies as needed) Mask style: Nasal Backup mask available: No (will keep old mask when replaced) Last cushion change: 4-5 months Prior sleep studies: Yes Year and Where: 2009 - [facility], 2004 - [facility] additional information: AFRICA VARGAS was diagnosed to have extremely severe, AHI 97.8, obstructive sleep apnea-hypopnea syndrome and returned today for CPAP therapy annual follow-up. Sleep Study - Results Prior sleep studies: Yes Year and Where: 2009 - [facility], 2004 - [place], [place] CPAP Compliance Data - Data Reviewed with Patient Average duration of nightly device use: 7 HRS, 14 MIN, 28SEC Compliance rate %: 91.8 (10/28/21-04/28/22; 169/183 days used) Current pressure setting (cmH2O): 10 Average residual AHI: 3.6 Central apnea: 0.2 Obstructive apnea: 1.4 Subjective Patient concerns: reports: dry mouth, nose, throat (occasionally). denies: aerophagia, mask discomfort, air blowing in eyes, mask leak noise, condensation in mask/hose, nasal congestion, epistaxis Observed to snore while using device: No Current pressure setting perceived as: comfortable On therapy, patient: reports: sleeping better, awakening more refreshed, being more awake and alert during the day, more rested overall. denies: drowsiness while driving Initial [place] Sleepiness Scale score: 12 (in 2009) Current [place] Sleepiness Scale score: 5 (05/2022) Allergies and Home Medications Drug allergies reviewed: Yes (codeine, hyoscyamine) Home medication list reviewed: Yes (no changes) Review of Systems Review of systems same as previous: Yes (Rt arm weak, Left arm pain) Physical Exam Vital signs obtained and entered by: MINDY Wade MA Blood Pressure: 126/78 (left arm) Cuff size: regular Heart Rate: 41 O2 Saturation: 97 Height: 5 ft 6 in Weight: 213 lb 12.8 oz Body Mass Index: 34.4 BMI Classification: Obese Impression and Plan 1. Obstructive Sleep Apnea-Hypopnea Syndrome, extremely severe, with good treatment compliance and god apnea control. On CPAP therapy, the patient has better sleep quality and is more rested overall. He states other than occasional dry mouth he has no issues with his CPAP. He just needs to get some supplies and he was encouraged to call [facility] to update his supplies. He voiced understanding. Patient has significant improvement of their sleep apnea and are satisfied with current CPAP therapy. Patient denies problems with nasal congestion, epistaxis, skin irritation or aerophagia. Patient's apnea severity and rationale for treatment to reduce apnea, improve sleep quality and reduce cardiovascular and cerebrovascular events was reviewed. I also reviewed the benefit of consistent device use of CPAP for hypertension. 2. Obesity, unspecified. Currently patients BMI is 34.4. Obesity increases the risk of apnea, CPAP pressure requirements and overall health risks especially cardiovascular and diabetes. Thus patient is advised to lose weight. * Continue CPAP pressure at 10 cmH2O * Update supplies * Notify me if snoring with mask or feeling that the pressure is too much or too little * Attempt to lose weight * Call this office if any problems using CPAP * Return for follow up in 1 year, or sooner if concerns arise Counseling Topics: Spare mask, Weight loss health impact Visit Type: In Office Time Spent with Patient (minutes): 20 Provider Statement: I spent 100% of the Face to Face Visit with the patient with greater than 50% spent counseling the patient and coordination of care.
[2022-05-02 14:21] VITALS: BP 126/78
== END 2022-05-02 13:46 | disposition home or self-care (01) ==
LOC: SC 13:45
PROVIDERS: ATTEND Nurse Practitioner Family
DX: G47.33 Obstructive sleep apnea (adult) (pediatric) (principal); E66.9 Obesity, unspecified; Z68.34 Body mass index [BMI] 34.0-34.9, adult
CPT/HCPCS: 99213; G0463; 99212

== ENCOUNTER 2022-05-06 07:08 | Outpatient (CLI) | payer MEDICARE | END 2022-05-06 07:09 | disposition critical access hospital (66) | LOC: EMS 07:08 | DX: M79.602 Pain in left arm (principal); R07.9 Chest pain, unspecified | CPT/HCPCS: A0425; A0429 ==

== ENCOUNTER 2022-05-06 07:40 | Emergency (ER) | payer MEDICARE ==
--- NOTE | 2022-05-06 08:02 | ED Physician Documentation ---
PD HPI CHEST PAIN - Stated complaint Stated Complaint: CHEST PRESSURE - Chief complaint Chief Complaint: Cardiac - History obtained from History obtained from: Patient - Additional information Additional information: 87-year-old gentleman with history of coronary disease, CAMARENA bypass about 23 years ago. He woke up and went to the bathroom around 620 this morning and then developed a jabbing chest pain like needles. Very brief. Had several episodes and then developed some tightness in the left arm from the elbow to the wrist. He has no more jabbing now and the arm pain is almost gone. There is no associated shortness of breath, fatigue, sweats, or nausea. Blood pressure prior to arrival was 238/88 or so, he notes that his blood pressure has been running high recently in the range of 175/70 due to cessation of amlodipine related to pedal edema. Review of Systems Ten Systems: 10 systems reviewed and negative Constitutional: denies: Fever, Chills Cardiac: denies: Palpitations, Pedal edema, Calf pain Respiratory: denies: Dyspnea, Cough, Hemoptysis, Wheezing PD PAST MEDICAL HISTORY - Past Medical History Cardiovascular: Hypertension, High cholesterol, Coronary artery disease, Angina, [place], Other Respiratory: Sleep apnea Neuro: None Endocrine/Autoimmune: Type 2 diabetes GI: GERD : None HEENT: None Psych: None Musculoskeletal: Other Derm: None - Past Surgical History Past Surgical History: Yes General: Cholecystectomy, Colonoscopy, EGD Ortho: Hip replacement Cardiovascular: CABG HEENT: Cataracts, Tonsil/Adenoidectomy - Present Medications Home Medications: Ambulatory Orders Medication Instructions Recorded Confirmed Aspirin [Aspir 81] 81 mg PO DAILY 11/15/14 05/06/22 Losartan [Cozaar] 100 mg PO DAILY 11/15/14 05/06/22 Lorazepam [Ativan] 1 mg PO DAILY PRN 12/10/14 05/06/22 Multivitamin [Multivitamins] 1 each PO DAILY 12/10/14 05/06/22 Omeprazole 20 mg PO DAILY 12/10/14 05/06/22 Carvedilol [Coreg] 6.25 mg PO BID 05/06/22 05/06/22 Chlorthalidone 25 mg ORAL DAILY 05/06/22 05/06/22 Glipizide [Glipizide ER] 5 mg PO BID 05/06/22 05/06/22 Metformin HCl [Metformin ER 1,000 mg PO DAILY 05/06/22 05/06/22 Osmotic] Rosuvastatin Calcium [Crestor] 10 mg PO HS 05/06/22 05/06/22 hydrALAZINE [Apresoline] 10 mg PO QID #120 tablet 05/06/22 - Allergies Allergies/Adverse Reactions: Allergies Allergy/AdvReac Type Severity Reaction Status Date / Time codeine AdvReac Severe Nausea Verified 05/06/22 07:50 hyoscyamine AdvReac Severe Rash Verified 05/06/22 07:50 - Social History Does the pt smoke?: No Smoking Status: Never smoker Does the pt drink ETOH?: No Does the pt have substance abuse?: No - Immunizations Immunizations are current?: Yes - POLST Patient has POLST: Yes PD ED PE NORMAL - Vitals Vital signs reviewed: Yes - General General: Alert and oriented X 3, No acute distress - HEENT HEENT: Pharynx benign - Neck Neck: Supple, no meningeal sign, No bony TTP - Cardiac Cardiac: RRR, No murmur, Other (Equal bilateral radial pulses. Left upper extremity nontender with full range of motion.) - Respiratory Respiratory: No respiratory distress, Clear bilaterally - Abdomen Abdomen: Normal bowel sounds, Soft, Non tender - Back Back: No CVA TTP, No spinal TTP - Derm Derm: Normal color, Warm and dry - Extremities Extremities: No edema, No calf tenderness / cord - Neuro Neuro: Alert and oriented X 3, Normal speech - Psych Psych: Normal mood, Normal affect Results - Vitals Vitals: Vital Signs - 24 hr 05/06/22 05/06/22 05/06/22 07:50 08:34 08:42 Temperature 36.9 C Heart Rate 50 L 44 L 45 L Respiratory 16 14 15 Rate Blood Pressure 222/66 H 201/47 H 180/48 H O2 Saturation 100 98 99 05/06/22 05/06/22 05/06/22 09:29 10:14 11:39 Temperature 35.9 C L Heart Rate 45 L 52 L 49 L Respiratory 14 18 20 Rate Blood Pressure 191/58 H 160/55 H 183/53 H O2 Saturation 99 98 98 Oxygen O2 Source Room air - EKG (time done) 0737 Rate: Rate (enter#) (49) Rhythm: Sinus bradycardia [place]: Normal Intervals: Normal AL, Other (borderline ivcd) Ischemia: Non specific changes. No: ST elevation c/w ischemia, ST depression Compare to prior EKG: Unchanged from prior EKG (no sig chg from 06/03/19) Computer interpretation: Agree with computer 1058 Rate: Rate (enter#) (46) Rhythm: Sinus bradycardia [place]: Normal Intervals: Normal AL QRS: Normal Ischemia: Non specific changes Computer interpretation: Agree with computer - Labs Labs: Laboratory Tests 05/06/22 05/06/22 05/06/22 07:45 07:45 07:45 WBC 10.2 RBC 4.56 L Hgb 13.9 L Hct 41.3 L MCV 90.6 MCH 30.5 MCHC 33.7 RDW 12.8 Plt Count 222 MPV 11.4 Neut # (Auto) 5.7 Lymph # (Auto) 3.1 Sandoval # (Auto) 1.0 Eos # (Auto) 0.3 Baso # (Auto) 0.1 Absolute Nucleated RBC 0.00 Nucleated RBC % 0.0 Sodium 140 Potassium 4.1 Chloride 105 Carbon Dioxide 28 Anion Gap 7.0 BUN 25 H Creatinine 1.2 Estimated GFR (MDRD) 58 L Glucose 164 H Calcium 9.1 Total Bilirubin 0.5 AST 21 ALT 23 Alkaline Phosphatase 64 Troponin I High Sens 14.0 Total Protein 6.8 Albumin 4.0 Globulin 2.8 Albumin/Globulin Ratio 1.4 Lipase 38 05/06/22 09:58 WBC RBC Hgb Hct MCV MCH MCHC RDW Plt Count MPV Neut # (Auto) Lymph # (Auto) Sandoval # (Auto) Eos # (Auto) Baso # (Auto) Absolute Nucleated RBC Nucleated RBC % Sodium Potassium Chloride Carbon Dioxide Anion Gap BUN Creatinine Estimated GFR (MDRD) Glucose Calcium Total Bilirubin AST ALT Alkaline Phosphatase Troponin I High Sens 14.3 Total Protein Albumin Globulin Albumin/Globulin Ratio Lipase PD MEDICAL DECISION MAKING - ED course ED course: 87-year-old gentleman presents with chest stabbing which is quite atypical not associated with any EKG changes. In fact he had some more stabbing later in his visit an EKG was repeated still without any interval changes. 2 troponins were done and negative. His blood pressure has been on the high side today he was given a prescription for hydralazine noting that he was intolerant of amlodipine, is already on fairly high-dose beta-blockade and losartan. Also a diuretic. Advise close follow-up with his PCP and lead ramp service man. Departure - Departure Disposition: 01 Home, Self Care Clinical Impression: Atypical chest pain Condition: Good Record reviewed to determine appropriate education?: Yes Instructions: ED Chest Pain Atypical Unkn Cause Prescriptions: hydrALAZINE [Apresoline] 10 mg PO QID #120 tablet Comments: You were seen today for chest pains, your EKG did not show any sign of heart attack and we did 2 sets of troponins which were negative. Your blood pressure is out of control, I am prescribing a new medication for that but if your blood pressure is a controlled at home you do not need to fill it. Follow-up with Dr. Plasencia, next available appointment, call them on Sunday and let them know you are in the emergency department for chest pain. Discharge Date/Time: 05/06/22 12:25
[2022-05-06 08:03] LABS: BASOPHILS # (AUTO) 0.1 10^3/uL (0.0-0.1); BASOPHILS % (AUTO) 0.5 %; EOSINOPHILS # (AUTO) 0.3 10^3/uL (0.0-0.7); EOSINOPHILS % (AUTO) 2.9 %; HCT - HEMATOCRIT 41.3 % (42.0-52.0); HGB - HEMOGLOBIN 13.9 g/dL (14.0-18.0); LYMPHOCYTES # (AUTO) 3.1 10^3/uL (1.5-3.5); LYMPHOCYTES % (AUTO) 30.1 %; MEAN CORPUSCULAR HEMOGLOBIN 30.5 pg (27.0-31.0); MEAN CORPUSCULAR HGB CONC 33.7 g/dL (32.0-36.0); MEAN CORPUSCULAR VOLUME 90.6 fL (80.0-94.0); MEAN PLATELET VOLUME 11.4 fL (7.4-11.4); NEUTROPHILS # (AUTO) 5.7 10^3/uL (1.5-6.6); NEUTROPHILS % (AUTO) 56.3 %; PLT - PLATELET COUNT 222 10^3/uL (130-450); RED BLOOD COUNT 4.56 10^6/uL (4.70-6.10); RED CELL DISTRIBUTION WIDTH 12.8 % (12.0-15.0); WHITE BLOOD COUNT 10.2 x10^3/uL (4.8-10.8)
[2022-05-06 08:18] LABS: ALBUMIN/GLOBULIN RATIO 1.4 (1.0-2.2); BILIRUBIN,TOTAL 0.5 mg/dL (0.2-1.0); CALCIUM 9.1 mg/dL (8.5-10.3); CREATININE 1.2 mg/dL (0.6-1.2); POTASSIUM 4.1 mmol/L (3.5-5.0); TOTAL PROTEIN 6.8 g/dL (6.7-8.2)
[2022-05-06] MEDS ORDERED: hydrALAZINE INJ 20 MG/ML VIAL IVP STA (08:26)
--- NOTE | 2022-05-06 09:27 | XRAY Report ---
PROCEDURE: Chest 1 View X-Ray INDICATIONS: Chest Pain TECHNIQUE: One view of the chest was acquired. COMPARISON: 06/03/2019 FINDINGS: Surgical changes and devices: Midline sternotomy wires. Mediastinal or perihilar surgical clips clip s noted in the left Lungs and pleura: No pleural effusions or pneumothorax. Lungs are clear. Elevated right hemidiaphr agm present. Mediastinum: Mediastinal contours appear normal. Heart size is normal. Bones and chest wall: No suspicious bony lesions. Overlying soft tissues appear unremarkable. IMPRESSION: No acute cardiopulmonary findings Reviewed by: Joselo Julien MD on 05/06/2022 8:26 AM HIRAL Approved by: Joselo Julien MD on 05/06/2022 8:26 AM [facility] Station ID: [id number]
[2022-05-06 11:39] VITALS: BP 183/53
== END 2022-05-06 12:25 | disposition home or self-care (01) ==
LOC: EDUNIT# → ED 07:40
DX: R07.89 Other chest pain (principal); I10 Essential (primary) hypertension
CPT/HCPCS: 36415; 80053; 83690; 84484; 85025; 93005; 96374; 99284

== ENCOUNTER 2022-05-06 12:24 | Outpatient (CLI) | payer MEDICARE | END 2022-05-06 12:25 | disposition home or self-care (01) | LOC: EMS 12:24 | PROVIDERS: ATTEND Emergency Medicine | DX: R07.9 Chest pain, unspecified (principal) | CPT/HCPCS: A0425; A0428 ==

== ENCOUNTER 2022-05-29 15:52 | Outpatient (CLI) | payer MEDICARE ==
[2022-05-29 16:10] LABS: BASOPHILS # (AUTO) 0.1 10^3/uL (0.0-0.1); BASOPHILS % (AUTO) 0.5 %; EOSINOPHILS # (AUTO) 0.2 10^3/uL (0.0-0.7); EOSINOPHILS % (AUTO) 1.8 %; HCT - HEMATOCRIT 41.3 % (42.0-52.0); HGB - HEMOGLOBIN 13.6 g/dL (14.0-18.0); LYMPHOCYTES # (AUTO) 2.4 10^3/uL (1.5-3.5); LYMPHOCYTES % (AUTO) 24.8 %; MEAN CORPUSCULAR HEMOGLOBIN 29.9 pg (27.0-31.0); MEAN CORPUSCULAR HGB CONC 32.9 g/dL (32.0-36.0); MEAN CORPUSCULAR VOLUME 90.8 fL (80.0-94.0); MEAN PLATELET VOLUME 11.1 fL (7.4-11.4); MONOCYTES # (AUTO) 0.9 10^3/uL (0.0-1.0); NEUTROPHILS # (AUTO) 6.3 10^3/uL (1.5-6.6); NEUTROPHILS % (AUTO) 63.7 %; PLT - PLATELET COUNT 224 10^3/uL (130-450); RED BLOOD COUNT 4.55 10^6/uL (4.70-6.10); RED CELL DISTRIBUTION WIDTH 13.1 % (12.0-15.0); WHITE BLOOD COUNT 9.8 x10^3/uL (4.8-10.8)
[2022-05-29 16:41] LABS: CALCIUM 9.5 mg/dL (8.5-10.3); CREATININE 1.1 mg/dL (0.6-1.2); POTASSIUM 3.8 mmol/L (3.5-5.0)
[2022-05-29 16:47] LABS: FERRITIN 62.6 ng/mL (23.9-336.2)
[2022-05-29 16:50] LABS: FOLATE 9.05 ng/mL (5.90 - >24.8)
[2022-05-29 21:03] LABS: ESTIMATED AVERAGE GLUCOSE 148 mg/dL (70-100); HEMOGLOBIN A1c% 6.8 % (4.27-6.07)
== END 2022-05-29 15:53 | disposition home or self-care (01) ==
LOC: LAB 15:52
PROVIDERS: ATTEND Internal Medicine
DX: I10 Essential (primary) hypertension (principal); D64.9 Anemia, unspecified; R07.9 Chest pain, unspecified; E11.9 Type 2 diabetes mellitus without complications; Z79.899 Other long term (current) drug therapy
CPT/HCPCS: 36415; 80048; 82607; 82728; 82746; 83036; 83540; 84466; 85025

== ENCOUNTER 2022-07-23 13:55 | Outpatient (CLI) | payer MEDICARE ==
--- NOTE | 2022-07-23 14:44 | CT Report ---
PROCEDURE: HEAD WO INDICATIONS: APHASIA TECHNIQUE: Noncontrast 4.5 mm thick angled axial sections acquired from the foramen magnum to the vertex. For r adiation dose reduction, the following was used: automated exposure control, adjustment of mA and/or kV according to patient size. COMPARISON: None. FINDINGS: Image quality: Decreased due to motion artifact.. CSF spaces: Basal cisterns are patent. No extra-axial fluid collections. Ventricles are mildly enl arged. Third and fourth ventricles are midline.. Brain: No midline shift. No intracranial masses or hemorrhage. Garzon-white matter interface is norm al. Skull and face: Calvarium and visualized facial bones are intact, without suspicious lesions. Sinuses: Visualized sinuses and mastoids are clear. IMPRESSION: 1. No CT evidence of mass, mass effect, or hemorrhage. 2. Mild, symmetric ventriculomegaly. Incidental and likely age-related. Reviewed by: Caitlyn Duarte MD on 07/23/2022 1:43 PM [place] Approved by: Caitlyn Duarte MD on 07/23/2022 1:43 PM [facility] Station ID: [id number]
== END 2022-07-23 13:56 | disposition home or self-care (01) ==
LOC: DI 13:55
PROVIDERS: ATTEND Internal Medicine
DX: R47.01 Aphasia (principal)

== ENCOUNTER 2022-10-11 11:06 | Outpatient (CLI) | payer MEDICARE ==
[2022-10-11 11:22] LABS: BASOPHILS % (AUTO) 0.5 %; EOSINOPHILS # (AUTO) 0.2 10^3/uL (0.0-0.7); EOSINOPHILS % (AUTO) 1.8 %; HCT - HEMATOCRIT 40.2 % (42.0-52.0); HGB - HEMOGLOBIN 13.4 g/dL (14.0-18.0); LYMPHOCYTES # (AUTO) 2.2 10^3/uL (1.5-3.5); LYMPHOCYTES % (AUTO) 24.5 %; MEAN CORPUSCULAR HEMOGLOBIN 30.5 pg (27.0-31.0); MEAN CORPUSCULAR HGB CONC 33.3 g/dL (32.0-36.0); MEAN CORPUSCULAR VOLUME 91.4 fL (80.0-94.0); MEAN PLATELET VOLUME 10.9 fL (7.4-11.4); MONOCYTES # (AUTO) 0.8 10^3/uL (0.0-1.0); MONOCYTES % (AUTO) 8.8 %; NEUTROPHILS # (AUTO) 5.7 10^3/uL (1.5-6.6); NEUTROPHILS % (AUTO) 64.1 %; PLT - PLATELET COUNT 202 10^3/uL (130-450); RED CELL DISTRIBUTION WIDTH 12.9 % (12.0-15.0); WHITE BLOOD COUNT 8.8 x10^3/uL (4.8-10.8)
[2022-10-11 11:36] LABS: MICROALBUM/CREATININE RATIO,UR 89.1 ug/mg (<30.0); MICROALBUMIN,URINE 11.4 mg/dL (0-300.0)
[2022-10-11 11:39] LABS: ALBUMIN/GLOBULIN RATIO 1.3 (1.0-2.2); ALKALINE PHOSPHATASE 65 IU/L (42-121); ALT ALANINE AMINOTRANSFERASE 21 IU/L (10-60); AST ASPARTATE AMINOTRANSFERASE 22 IU/L (10-42); BILIRUBIN,TOTAL 0.7 mg/dL (0.2-1.0); BUN - BLOOD UREA NITROGEN 29 mg/dL (6-20); CALCIUM 9.1 mg/dL (8.5-10.3); CARBON DIOXIDE - CO2 28 mmol/L (21-32); CHLORIDE 105 mmol/L (101-111); CHOL/HDL RATIO 3.3 (<5.0); CHOLESTEROL 128 mg/dL; CK- CREATINE KINASE 129 IU/L (22-269); CREATININE 1.1 mg/dL (0.6-1.2); GFR - MDRD 64 (>89); GLUCOSE 138 mg/dL (70-100); HDL CHOLESTEROL 39 mg/dL; LDL CHOLESTEROL,CALCULATED 52 mg/dL; LDL/HDL RATIO 1.3 (<3.6); SODIUM 140 mmol/L (135-145); TOTAL PROTEIN 7.2 g/dL (6.7-8.2); TRIGLYCERIDES 184 mg/dL; VLDL CHOLESTEROL 37 mg/dL
[2022-10-11 11:49] LABS: THYROID STIMULATING HORMONE 3.86 uIU/mL (0.34-5.60)
[2022-10-11 12:25] LABS: ESTIMATED AVERAGE GLUCOSE 143 mg/dL (70-100); HEMOGLOBIN A1c% 6.6 % (4.27-6.07)
== END 2022-10-11 11:07 | disposition home or self-care (01) ==
LOC: LAB 11:06
PROVIDERS: ATTEND Internal Medicine
DX: I10 Essential (primary) hypertension (principal); E11.9 Type 2 diabetes mellitus without complications; D75.1 Secondary polycythemia; Z79.899 Other long term (current) drug therapy
CPT/HCPCS: 36415; 80053; 80061; 82043; 82550; 82570; 82607; 83036; 83721; 84443; 85025